=== PATIENT | female | born 1980 | race Caucasian/White ===

== ENCOUNTER 2023-10-08 06:07 | Outpatient (REF) | payer OTHER, SELFPAY ==
[2023-10-08 06:40] LABS: Basophils Absolute Auto 0.1 X10*3/uL (0.0-0.2); Basophils Percent Auto 0.3 % (0-2); Eosinophils Absolute Auto 0.2 X10*3/uL (0.0-0.4); Hematocrit 27.6 % (37.0-47.0); Hemoglobin 8.8 g/dl (12.0-16.0); Imm Gran Abs Auto 0.06 X10*3/uL (0.00-0.03); Imm Gran Pct Auto 0.3 % (0.0-0.4); Lymphocytes Absolute Auto 5.9 X10*3/uL (1.2-4.9); Lymphocytes Percent Auto 32.6 % (20-40); MANUAL DIFF FLAG SCAN; Mean Corpuscular HGB Conc 31.9 g/dl (31.0-35.0); Mean Corpuscular Hemoglobin 32.5 pg (27.0-33.0); Mean Corpuscular Volume 101.8 fL (80.0-98.0); Mean Platelet Volume 9.8 fL (9.4-12.3); Monocytes Absolute Auto 1.1 X10*3/uL (0.1-1.2); Monocytes Percent Auto 6.3 % (2-11); Neutrophils Absolute Auto 10.7 x10*3/uL (2.0-8.3); Neutrophils Percent Auto 59.5 % (45-73); Platelet Count 279 X10*3/uL (160-400); Red Blood Count 2.71 X10*6/uL (4.20-5.50); Red Cell Distribution Width 14.6 % (11.0-16.0); SCAN SMEAR FLAG 1
[2023-10-08 06:54] LABS: Alanine Aminotransferase 45 U/L (0-31); Albumin Level 3.8 g/dL (3.5-5.0); Alkaline Phosphatase 91 U/L (39-117); Anion Gap 14 (12-20); Aspartate Amino Transferase 28 U/L (5-31); Bilirubin Total 0.4 mg/dL (0.0-1.0); Blood Urea Nitrogen 18 mg/dL (9-16); Calcium 10.4 mg/dL (8.4-10.2); Carbon Dioxide 26 mmol/L (22-29); Chloride 101 mmol/L (96-108); Estimated Glomerular Filt Rate 36; Glucose Random 101 mg/dL (60-115); Potassium 3.9 mmol/L (3.3-5.1); Sodium 137 mmol/L (135-145); Total Protein 7.4 g/dL (6.5-8.0)
[2023-10-08 07:25] LABS: SLIDE REVIEW VERIFIED
== END 2023-10-08 06:08 | disposition home or self-care (01) ==
LOC: HO.MMNH1L 06:07
PROVIDERS: Visit Provider Family Medicine
DX: N18.6 End stage renal disease (principal)
CPT/HCPCS: 36415; 80053; 85025

== ENCOUNTER 2023-10-14 06:08 | Outpatient (REF) | payer OTHER, SELFPAY ==
[2023-10-14 06:57] LABS: Basophils Absolute Auto 0.1 X10*3/uL (0.0-0.2); Basophils Percent Auto 0.3 % (0-2); Eosinophils Absolute Auto 0.2 X10*3/uL (0.0-0.4); Hematocrit 27.9 % (37.0-47.0); Hemoglobin 8.7 g/dl (12.0-16.0); Imm Gran Abs Auto 0.07 X10*3/uL (0.00-0.03); Imm Gran Pct Auto 0.4 % (0.0-0.4); Lymphocytes Absolute Auto 7.2 X10*3/uL (1.2-4.9); Lymphocytes Percent Auto 41.5 % (20-40); MANUAL DIFF FLAG SCAN; Mean Corpuscular HGB Conc 31.2 g/dl (31.0-35.0); Mean Corpuscular Hemoglobin 32.5 pg (27.0-33.0); Mean Corpuscular Volume 104.1 fL (80.0-98.0); Mean Platelet Volume 9.7 fL (9.4-12.3); Monocytes Absolute Auto 1.3 X10*3/uL (0.1-1.2); Monocytes Percent Auto 7.3 % (2-11); Neutrophils Absolute Auto 8.6 x10*3/uL (2.0-8.3); Neutrophils Percent Auto 49.5 % (45-73); Platelet Count 357 X10*3/uL (160-400); Red Blood Count 2.68 X10*6/uL (4.20-5.50); SCAN SMEAR FLAG 1; White Blood Count 17.3 X10*3/uL (4.8-10.8)
[2023-10-14 07:11] LABS: Anion Gap 13 (12-20); Blood Urea Nitrogen 21 mg/dL (9-16); Calcium 9.7 mg/dL (8.4-10.2); Carbon Dioxide 25 mmol/L (22-29); Chloride 106 mmol/L (96-108); Estimated Glomerular Filt Rate 54; Glucose Random 79 mg/dL (60-115); Potassium 3.7 mmol/L (3.3-5.1); Sodium 140 mmol/L (135-145)
[2023-10-14 08:00] LABS: SLIDE REVIEW VERIFIED
== END 2023-10-14 06:09 | disposition home or self-care (01) ==
LOC: HO.MMNH1L 06:08
PROVIDERS: Visit Provider Family Medicine
DX: N18.6 End stage renal disease (principal)
CPT/HCPCS: 36415; 80048; 85025

== ENCOUNTER 2023-10-21 05:42 | Outpatient (REF) | payer OTHER, SELFPAY ==
[2023-10-21 05:47] LABS: Basophils Percent Auto 0.2 % (0-2); Eosinophils Percent Auto 0.1 % (0-4); Hematocrit 27.7 % (37.0-47.0); Hemoglobin 8.9 g/dl (12.0-16.0); Imm Gran Abs Auto 0.28 X10*3/uL (0.00-0.03); Imm Gran Pct Auto 1.2 % (0.0-0.4); Lymphocytes Absolute Auto 5.2 X10*3/uL (1.2-4.9); Lymphocytes Percent Auto 22.5 % (20-40); MANUAL DIFF FLAG SCAN; Mean Corpuscular HGB Conc 32.1 g/dl (31.0-35.0); Mean Corpuscular Hemoglobin 32.4 pg (27.0-33.0); Mean Corpuscular Volume 100.7 fL (80.0-98.0); Mean Platelet Volume 9.6 fL (9.4-12.3); Monocytes Percent Auto 4.1 % (2-11); Neutrophils Absolute Auto 16.6 x10*3/uL (2.0-8.3); Neutrophils Percent Auto 71.9 % (45-73); Platelet Count 327 X10*3/uL (160-400); Red Blood Count 2.75 X10*6/uL (4.20-5.50); Red Cell Distribution Width 13.4 % (11.0-16.0); SCAN SMEAR FLAG 1
[2023-10-21 06:15] LABS: SLIDE REVIEW VERIFIED
[2023-10-21 06:23] LABS: Anion Gap 13 (12-20); Blood Urea Nitrogen 22 mg/dL (9-16); Calcium 9.7 mg/dL (8.4-10.2); Carbon Dioxide 21 mmol/L (22-29); Chloride 106 mmol/L (96-108); Estimated Glomerular Filt Rate > 60; Glucose Random 107 mg/dL (60-115); Sodium 136 mmol/L (135-145)
== END 2023-10-21 05:43 | disposition home or self-care (01) ==
LOC: HO.MMNH1L 05:42
PROVIDERS: Visit Provider Family Medicine
DX: N18.6 End stage renal disease (principal)
CPT/HCPCS: 36415; 80048; 85025

== ENCOUNTER 2023-10-23 00:07 | Outpatient (REF) | payer OTHER, SELFPAY ==
[2023-10-23 00:39] LABS: Appearance Urine Clear; Color Urine Yellow; Glucose Urine UA Negative (Negative); Leukocyte Esterase Urine Negative (Negative); Nitrite Urine Negative (Negative); PH 6.5 (5.0-9.0); Specific Gravity - Urine <= 1.005 (1.005-1.025); Urine Blood Negative (Negative); Urine Ketones Negative (Negative); Urine Protein Negative (Neg-Trace)
== END 2023-10-23 00:08 | disposition home or self-care (01) ==
LOC: HO.MMNH1L 00:07
PROVIDERS: Visit Provider Family Medicine
DX: J80 Acute respiratory distress syndrome (principal); R26.9 Unspecified abnormalities of gait and mobility; R27.8 Other lack of coordination
CPT/HCPCS: 81003

== ENCOUNTER 2023-10-24 05:47 | Outpatient (REF) | payer OTHER, SELFPAY ==
[2023-10-24 06:01] LABS: Basophils Absolute Auto 0.1 X10*3/uL (0.0-0.2); Basophils Percent Auto 0.3 % (0-2); Eosinophils Absolute Auto 0.2 X10*3/uL (0.0-0.4); Eosinophils Percent Auto 0.7 % (0-4); Hematocrit 28.8 % (37.0-47.0); Hemoglobin 9.4 g/dl (12.0-16.0); Imm Gran Abs Auto 0.28 X10*3/uL (0.00-0.03); Imm Gran Pct Auto 1.2 % (0.0-0.4); Lymphocytes Absolute Auto 8.3 X10*3/uL (1.2-4.9); Lymphocytes Percent Auto 34.5 % (20-40); MANUAL DIFF FLAG SCAN; Mean Corpuscular HGB Conc 32.6 g/dl (31.0-35.0); Mean Corpuscular Hemoglobin 33.3 pg (27.0-33.0); Mean Corpuscular Volume 102.1 fL (80.0-98.0); Mean Platelet Volume 9.4 fL (9.4-12.3); Monocytes Absolute Auto 1.5 X10*3/uL (0.1-1.2); Monocytes Percent Auto 6.3 % (2-11); Neutrophils Absolute Auto 13.7 x10*3/uL (2.0-8.3); Platelet Count 280 X10*3/uL (160-400); Red Blood Count 2.82 X10*6/uL (4.20-5.50); Red Cell Distribution Width 13.5 % (11.0-16.0); SCAN SMEAR FLAG 1; White Blood Count 24.1 X10*3/uL (4.8-10.8)
[2023-10-24 06:21] LABS: Anion Gap 14 (12-20); Blood Urea Nitrogen 25 mg/dL (9-16); Calcium 10.1 mg/dL (8.4-10.2); Carbon Dioxide 24 mmol/L (22-29); Chloride 105 mmol/L (96-108); Estimated Glomerular Filt Rate 49; Glucose Random 76 mg/dL (60-115); Potassium 4.6 mmol/L (3.3-5.1); Sodium 138 mmol/L (135-145)
[2023-10-24 06:24] LABS: SLIDE REVIEW VERIFIED
== END 2023-10-24 05:48 | disposition home or self-care (01) ==
LOC: HO.MMNH1L 05:47
PROVIDERS: Visit Provider Family Medicine
DX: R27.8 Other lack of coordination (principal); J80 Acute respiratory distress syndrome; R26.9 Unspecified abnormalities of gait and mobility
CPT/HCPCS: 36415; 80048; 85025

== ENCOUNTER 2023-10-28 05:59 | Outpatient (REF) | payer OTHER, SELFPAY ==
[2023-10-28 06:15] LABS: Basophils Absolute Auto 0.1 X10*3/uL (0.0-0.2); Basophils Percent Auto 0.3 % (0-2); Eosinophils Absolute Auto 0.4 X10*3/uL (0.0-0.4); Hematocrit 29.7 % (37.0-47.0); Hemoglobin 9.6 g/dl (12.0-16.0); Imm Gran Abs Auto 0.28 X10*3/uL (0.00-0.03); Imm Gran Pct Auto 1.4 % (0.0-0.4); MANUAL DIFF FLAG SCAN; Mean Corpuscular HGB Conc 32.3 g/dl (31.0-35.0); Mean Corpuscular Hemoglobin 32.3 pg (27.0-33.0); Mean Platelet Volume 9.6 fL (9.4-12.3); Monocytes Absolute Auto 1.2 X10*3/uL (0.1-1.2); Neutrophils Absolute Auto 11.8 x10*3/uL (2.0-8.3); Neutrophils Percent Auto 57.3 % (45-73); Platelet Count 261 X10*3/uL (160-400); Red Blood Count 2.97 X10*6/uL (4.20-5.50); Red Cell Distribution Width 13.5 % (11.0-16.0); SCAN SMEAR FLAG 1; White Blood Count 20.6 X10*3/uL (4.8-10.8)
[2023-10-28 06:16] LABS: Lymphocytes Absolute Auto 6.8 X10*3/uL (1.2-4.9)
[2023-10-28 06:31] LABS: Alanine Aminotransferase 37 U/L (0-31); Albumin Level 3.4 g/dL (3.5-5.0); Alkaline Phosphatase 87 U/L (39-117); Anion Gap 11 (12-20); Aspartate Amino Transferase 19 U/L (5-31); Bilirubin Total 0.3 mg/dL (0.0-1.0); Blood Urea Nitrogen 18 mg/dL (9-16); Calcium 9.4 mg/dL (8.4-10.2); Carbon Dioxide 23 mmol/L (22-29); Chloride 108 mmol/L (96-108); Estimated Glomerular Filt Rate > 60; Glucose Random 107 mg/dL (60-115); Potassium 3.5 mmol/L (3.3-5.1); Sodium 138 mmol/L (135-145); Total Protein 6.2 g/dL (6.5-8.0)
[2023-10-28 07:29] LABS: SLIDE REVIEW VERIFIED
== END 2023-10-28 06:00 | disposition home or self-care (01) ==
LOC: HO.MMNH1L 05:59
PROVIDERS: Visit Provider Family Medicine
DX: N18.6 End stage renal disease (principal)
CPT/HCPCS: 36415; 80053; 85025

== ENCOUNTER 2025-05-14 13:32 | Outpatient (AMB) | payer OTHER, SELFPAY ==
--- NOTE | 2025-05-14 14:08 | A.OFFPC_ITS ---
Vital Signs 05/14/25 14:11 Height 4 ft 11 in Weight 184 lb 6 oz BMI 37.2 BP 120/82 Blood Pressure Location Lt brachial Position Sitting Respiration 16 Pulse 110 H Pulse Source Pulse Oximeter Temp 97.1 F Temp Source Temporal Artery Scan Pulse Oximetry (%) 99 Oxygen Delivery Method Nasal Cannula Oxygen Flow Rate 4 Intake Visit Reasons: Annual Director Of Assessing Required: No Accompanied by: Son Allergies ciprofloxacin Allergy (Intermediate, Verified 05/14/25 14:20) hives, internal burning epinephrine (From Epi E-Z Pen) Allergy (Intermediate, Verified 05/14/25 14:17) hives, internal burning ertapenem Allergy (Intermediate, Verified 05/14/25 14:20) hives, internal burning ibuprofen (From Motrin) Allergy (Intermediate, Verified 05/14/25 14:17) hives, internal burning iodine Allergy (Intermediate, Verified 05/14/25 14:20) hives, internal burning iohexol (From Omnipaque) Allergy (Intermediate, Verified 05/14/25 14:20) hives, internal burning methylprednisolone (From Medrol) Allergy (Intermediate, Verified 05/14/25 14:20) hives, internal burning naproxen Allergy (Intermediate, Verified 05/14/25 14:17) hives, internal burning Penicillins Allergy (Intermediate, Verified 05/14/25 14:20) hives, internal burning vancomycin Allergy (Intermediate, Verified 05/14/25 14:20) hives, internal burning Medication List - Last Reconciled 05/14/25 by Nita Carr MD blood sugar diagnostic (FreeStyle Lite Strips) As directed blood-glucose meter (FreeStyle Lite Meter kit) As directed cholecalciferol (vitamin D3) 125 mcg PO DAILY hydroxyzine pamoate 50 mg PO TID lebrikizumab-lbkz (Ebglyss Pen) mg subcut levetiracetam 1,000 mg PO BID loratadine 10 mg PO DAILY melatonin 10 mg PO BEDTIME PRN metoprolol tartrate mg PO midodrine 5 mg PO TID mirtazapine 45 mg PO BEDTIME montelukast 10 mg PO DAILY naloxone 4 mg/actuation intranasal ondansetron HCl 4 mg PO Q8H PRN pantoprazole 40 mg PO DAILY pregabalin 50 mg PO TID tacrolimus 0.1% 1 appl topical BID warfarin 2 - 4 mg PO DAILY Tobacco use date assessed: 05/14/25 Dental Screening Dental Screen Date: 05/14/25 Did you have a dental visit in the last 12 months?: Yes Did you have a dental problem in the last 6 months where you did not have access to dental care?: No Was dental information given to patient?: Patient has dentist HPI HPI Comments History of Present Illness Details The patient is a 45-year-old female presenting to re-establish care and for physical Seizure Disorder: History of managing with Keppra. Continuity with neurologic care planned. Diabetes Mellitus Type 2: Was on Zepbound for management. Elevated glucose readings. Reports med was discontinued by provider she was seeing in the interim. Hypertension: Discontinuation of metoprolol noted with resultant heart rate elevations and related symptoms such as chest tightness and palpitations. Interstitial Lung Disease: Requires 5L of oxygen, increased demand impacting mobility. Hvac Technician is at [facility] Dress Syndrome: s/p hospitalizations, established with [facility] Maintenance will obtain records for preventive care done at [facility] Medical History: - Seizure Disorder - Diabetes Mellitus Type 2 - Hypertension - Interstitial Lung Disease - Dress Syndrome Social History: - Requires assistance for daily activiti es due to mobility issues. - Lives with children; dependent on [id number] support for care. - Mobility limitations uses wheelchair Review of Systems - Cardiovascular: Reports palpitations a nd elevated heart rate after metoprolol was discontinued. - Respiratory: Interstitial lung disease requiring supplemental oxygen. - Dermatological: Previous issues relate d to Dress Syndrome. - Musculoskeletal: Reports mobility diff iculties and inability to ascend stairs. Physical Exam - Gen: NAD - HEENT: EOMI, PERRL - Chest: CTABL - Card: normal s1, s2, soft murmur acros s precordium - Abd: SNTND, +BS - Extremities: trace edema bilaterally Assessment and Plan 1. Seizure Disorder - Maintain Keppra therapy. - Follow up with [facility] neurologist mariaa baron in July. 2. Diabetes Mellitus Type 2 - Resume Zepbound potentially depending on labs - Monitor glucose stability and perform HbA1c. 3. Hypertension - Reinstitute metoprolol. - Monitor cardiovascular parameters. 4. Interstitial Lung Disease - Continue current oxygen therapy. - Follow up with pulmonology. 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 Depression/anxiety- continue to [facility], has a therapist Plan - Follow up with neurologist - Conduct HbA1c to monitor diabetes. - Reinstitute metoprolol for heart rate control and monitor. - Maintain oxygen at 5L for interstitial lung disease. - Contact instruments sales representative if symptoms pers ist. Discussion Notes I discussed with the patient the importance of maintaining her current seizure medication. We discussed the need for careful glucose monitoring, potential metabolic impacts, and close monitoring of her increased oxygen requirements for interstitial lung disease. Follow up in 1 month Patient Instructions - Resume metoprolol - Track blood pressure and heart rate; c all with updates on Saturday. - Use 5L oxygen as needed, have follow-u p with lung specialists. - Ensure medications that were stopped a re re-initiated as discussed. - Contact instruments sales representative if breathing wor sens or your oxygen needs increase. [facility] Medical History (Updated 05/14/25 @ 17:09 by Nita Carr MD) History of coma Chronic respiratory failure Interstitial lung disease DRESS syndrome Diabetes mellitus type 2 in obese Seizures Tachycardia Social History Housing: Apartment Patient Tobacco Use Status: Former Tobacco user Years Smoked: occasionally for 2 years e-Cigarette/Vaping Use: Never Used Current occupational status: unemployed Questionnaire PHQ-9 Over the last 2 weeks, how often have you been bothered by any of the following problems? 1. Little interest or pleasure in doing things: nearly every day 2. Feeling down, depressed, or hopeless: more than half the days 3. Trouble falling or staying asleep, or sleeping too much: nearly every day 4. Feeling tired or having little energy: nearly every day 5. Poor appetite or overeating: nearly every day 6. Feeling bad about yourself - or that you are a failure or have let yourself or your family down: not at all 7. Trouble concentrating on things, such as reading the newspaper or watching television: nearly every day 8. Moving or speaking so slowly that other people could have noticed. Or the opposite - being so fidgety or restless that you have been moving around a lot more than usual: more than half the days 9. Thoughts that you would be better off or of hurting yourself in some way: not at all Total score: 19 Depression Screening Interpretation: Positive Depression Screening Done: Yes 08876 - PHQ-9 Billing: Yes Source: Developed by Drs. William Ibarra, Anel Puentes, Vu Hall and colleagues, with an educational elisabeth from [employer]. Thrive Questionnaire Date Thrive assessed: 05/14/25 I am a: Patient What is your living situation today?: I have a steady place to live Within the past 12 months, did you worry whether your food would run out before you got money to buy more?: Sometimes True Do you have trouble paying for medicines?: Yes Do you have trouble getting transportation to medical appointments?: Yes Do you have trouble paying your heating and electricity bill?: Yes Do you have trouble taking care of your child, family member or friend?: Yes Are you currently unemployed and looking for a job?: No THRIVE Score: 3 AUDIT C Alcohol Use Questionnaire (AUDIT-C) 1. How often do you have a drink containing alcohol?: Never 3. How often do you have six or more drinks on one occasion?: Never Total Score: 0 FRED-7 AMB Questionnaire FRED-7 Date FRED - 7 assessed: 05/14/25 Feeling nervous, anxious, or on edge: 3 = Nearly every day Not being able to stop or control worryin = Nearly every day Worrying too much about different things: 3 = Nearly every day Trouble relaxin = Nearly every day Being so restless that it is hard to sit still: 3 = Nearly every day Becoming easily annoyed or irritable: 3 = Nearly every day Feeling afraid as if something awful might happen: 3 = Nearly every day Total FRED-7 score (0-4 normal; 5-9 mild; 10-14 moderate; 15-21 severe): 21 Source: Developed by Drs. William Ibarra, Anel Puentes, Vu Hall and colleagues, with an educational elisabeth from [employer]. Physical exam (Primary Care) Vital Signs: Last Vital Signs Temp 97.1 F 05/14/25 14:11 Pulse 110 H 05/14/25 14:11 Resp 16 05/14/25 14:11 BP 120/82 05/14/25 14:11 Pulse Ox 99 05/14/25 14:11 Oxygen Delivery Method Nasal Cannula 05/14/25 14:11 Oxygen Flow Rate 4 05/14/25 14:11 BMI result Body Mass Index 37.2 Tobacco/Smoking Status: Tobacco use Status Tobacco use date assessed 05/14/25 05/14/25 14:10 Patient Tobacco Use Status Former Tobacco user 05/14/25 14:29 e-Cigarette/Vaping Use Never Used 05/14/25 14:29 PHQ-9: PHQ-9 Score PHQ-9: Total score 19 05/14/25 16:22 Depression Screening Interpretation: Positive Thrive Assessment: Date of Thrive Assessment Date Thrive assessed 05/14/25 05/14/25 16:22 Coding Level of Care Code Est Pt Level 4 (49995) Est Pt Prev Care 40-64y(55334) Diagnoses Routine adult health maintenance Z00.00 Seizures R56.9 Tachycardia R00.0 Diabetes mellitus type 2 in obese E11.69; E66.9 DRESS syndrome D72.12; T50.905A Additional Codes PHQ-9 - 36801 - PHQ-9 Billing: Yes ([id number]) Comment add G2211 code and modifier 25 Assessment & Plan Assessment & Plan (1) Routine adult health maintenance: Code(s): Z00.00 - Encounter for general adult medical examination without abnormal findings Category: Medical (2) Seizures: Code(s): R56.9 - Unspecified convulsions Category: Medical (3) Tachycardia: Code(s): R00.0 - Tachycardia, unspecified Category: Medical Plan: resume metoprolol (4) Diabetes mellitus type 2 in obese: Code(s): E11.69 - Type 2 diabetes mellitus with other specified complication; E66.9 - Obesity, unspecified Category: Medical (5) DRESS syndrome: Code(s): D72.12 - Drug rash with eosinophilia and systemic symptoms syndrome; T50.905A - Adverse effect of unspecified drugs, medicaments and biological substances, initial encounter Category: Medical Plan - Follow up with neurologist - Conduct HbA1c to monitor diabetes. - Reinstitute metoprolol for heart rate control and monitor. - Maintain oxygen at 5L for interstitial lung disease. - Contact instruments sales representative if symptoms persist. Orders: Orders Hemoglobin A1c Today D72.12 - Drug rash with eosinophilia and systemic symptoms syndrome, E11.69 - Type 2 diabetes mellitus with other specified complication, E66.9 - Obesity, unspecified, R00.0 - Tachycardia, unspecified, R56.9 - Unspecified convulsions, T50.905A - Adverse effect of unspecified drugs, medicaments and biological substances, initial encounter Complete Blood Count Auto Diff Today D72.12 - Drug rash with eosinophilia and systemic symptoms syndrome, E11.69 - Type 2 diabetes mellitus with other specified complication, E66.9 - Obesity, unspecified, R00.0 - Tachycardia, unspecified, R56.9 - Unspecified convulsions, T50.905A - Adverse effect of unspecified drugs, medicaments and biological substances, initial encounter Comprehensive Met. Panel Today D72.12 - Drug rash with eosinophilia and systemic symptoms syndrome, E11.69 - Type 2 diabetes mellitus with other specified complication, E66.9 - Obesity, unspecified, R00.0 - Tachycardia, unspecified, R56.9 - Unspecified convulsions, T50.905A - Adverse effect of unspecified drugs, medicaments and biological substances, initial encounter Lipid Panel Today D72.12 - Drug rash with eosinophilia and systemic symptoms syndrome, . - Type 2 diabetes mellitus with other specified complication, E66.9 - Obesity, unspecified, R00.0 - Tachycardia, unspecified, R56.9 - Unspecified convulsions, T50.905A - Adverse effect of unspecified drugs, medicaments and biological substances, initial encounter Vitamin B12 Today D72.12 - Drug rash with eosinophilia and systemic symptoms syndrome, . - Type 2 diabetes mellitus with other specified complication, E66.9 - Obesity, unspecified, R00.0 - Tachycardia, unspecified, R56.9 - Unspecified convulsions, T50.905A - Adverse effect of unspecified drugs, medicaments and biological substances, initial encounter Vitamin D 25-OH Total Today D72.12 - Drug rash with eosinophilia and systemic symptoms syndrome, E11.69 - Type 2 diabetes mellitus with other specified complication, E66.9 - Obesity, unspecified, R00.0 - Tachycardia, unspecified, R56.9 - Unspecified convulsions, T50.905A - Adverse effect of unspecified drugs, medicaments and biological substances, initial encounter Microalbumin, Random (w Creat) Today .69 - Type 2 diabetes mellitus with other specified complication, E66.9 - Obesity, unspecified, R00.0 - Tachycardia, unspecified Medications: New melatonin 10 mg PO BEDTIME PRN 90 caps 2RF insomnia 90 days metoprolol tartrate 25 mg PO DAILY 90 tabs 2RF 90 days pantoprazole 40 mg PO DAILY 90 tabs 3RF 90 days thiamine HCl (vitamin B1) 100 mg PO DAILY 90 caps 2RF melatonin 10 mg PO BEDTIME 90 days PRN 90 caps 2RF insomnia pregabalin 50 mg PO TID 90 caps 5RF
[2025-05-14 14:11] VITALS: BP 120/82; PULSE 110; RESP 16; TEMP 36.2; O2SAT 99; BMI 37.2
--- OUTSIDE RECORDS SUMMARY | 2025-05-14 15:38 | XMS_ITS | Encounter Summary ---
Author Organization [facility] Address [address] [place] [id number] Phone Care Team Providers Care Benzol Operator Name Role Phone Nita Carr MD Primary Care Provider + Reason for Referral * Consultation (Within 1 month) - New Request Specialty Diagnoses / Procedures Referred By Bolivar murdock Referred To Contact Allergy and Immunology Olivia Meier MD [address] [place] [address] Phone: tel: fax: [address] [address] Phone: tel: Referral ID Status Reason Start Date Expiration Date V isits Requested Visits Authorized [id number] New Request 01/05/2025 01/05/2026 1 1 Encounter Details Date Type Department Care Team (Late st Contact Info) Description 01/05/2025 Transcribe Orders [facility] Referral Management [address] [place] [address] Olivia Meier MD [address] [place] [address] Social History Tobacco Use Types Packs/Day Years Used Date Smoking Tobacco: Never Assessed Education Answer Date Recorded Are you interested in more education? Not on shalonda e 04/01/2023 Are you concerned about learning? Not on file 04/01/2023 No 04/01/2023 No 04/01/2023 Digital Access Answer Date Recorded No 04/01/2023 No 04/01/2023 Reliable internet access at home? Not on file 04/01/2023 Device with a working camera? Not on file Comments Unknown Sex and Gender Information Value Date Recorded Sex Assigned at Female 04/01/2023 1:52 PM EDT Legal Sex Female 1:42 PM EDT Gender Identity Female 04/01/2023 1:52 PM EDT Sexual Orientation Straight 04/01/2023 1: 52 PM EDT documented as of this encounter Plan of Treatment Scheduled Referrals Name Type Priority Associated Diagnoses Order Schedule Amb[place] [facility] Referral Routine Ordered: 01/05/2025 documented as of this encounter Visit Diagnoses Not on filedocumented in this encounter Care Teams Benzol Operator Relationship Specialty Start Date End Date Nita Carr MD PCP - General Internal Medicine 04/01/23 documented as of this encounter Additional Source Comments The information contained in this document represents components of the legal health record. It is not the complete legal health record.[facility]
--- OUTSIDE RECORDS SUMMARY | 2025-05-14 15:38 | XMS_ITS | Data Portability ---
Author Organization [employer] [facility], [facility] Address [address] [place] [address] Care Team Providers Care Legislative Assistant Name Role Phone HIM CCA OTHER Assessment No assessment recorded. Plan of Treatment Reminders Order Date Submit Date Provider Last Modified By Organization Details Last Modified Time Details Appointments None record ed. Lab None record ed. Referral None record ed. Procedures None record ed. Surgeries None record ed. Imaging None record ed. Medication Orders None record ed. Patient TargetsNo targets recorded. Patient InstructionsNo instructions recorded. Reason for Referral None Reported. Medical Equipment None Reported. Medications Name Sig Start Date Stop Date Status Note LastModified by Organization Details LastModified Time vitamin d3 25 mcg (1000u) t active Not Available Not Available No t Available b-1 100 mg tabs active Not Available Not Available Not Available neomycin-zora ymyxin-hydro nakul 3.5 mg/mL-10,000 unit/mL-1 % ear solution active Not Available Not Available Not Available Diphenhist 25 mg capsule active Not Available Not Available Not Available azithromycin 250 mg tablet active Not Available Not Available Not Available levetiraceta m 500 mg tablet active Not Available Not Available Not Available valacyclovir 1 gram tablet active Not Available Not Available Not Available mycophenolat e mofetil 250 mg capsule active Not Available Not Available Not Available senna 8.6 mg tablet active Not Available Not Available Not Available ondansetron HCl 4 mg tablet active Not Available Not Available Not Available prednisone 20 mg tablet active Not Available Not Available Not Available dexamethason e 6 mg tablet active Not Available Not Available Not Available sertraline 100 mg tablet active Not Available Not Available Not Available midodrine 5 mg tablet active Not Available Not Available No t Available triamcinolon e acetonide 0.5 % topical ointment active Not Available Not Available Not Available metronidazol e 500 mg tablet active Not Available Not Available Not Available melatonin 3 mg tablet active Not Available Not Available No t Available omeprazole 40 mg capsule,klaus yed release active Not Available Not Available Not Available tramadol 50 mg tablet TAKE 1 TAB EVERY 6 TO 8 HOURS NEEDED FOR SEVERE PAIN SCALE 7-10 active Not Available Not Available N ot Available acetaminophe n ER 650 mg tablet,exten ded release active Not Available Not Available Not Available famotidine 20 mg tablet active Not Available Not Available Not Available hydrocortiso ne-acetic acid 1 %-2 % ear drops TAKE 3 DROPS INTO LEFT EAR 3 TIMES PER DAY FOR 7 DAYS active Not Available Not Available No t Available doxycycline monohydrate 100 mg capsule active Not Available Not Available Not Available mirtazapine 30 mg tablet active Not Available Not Available Not Available Banophen 25 mg tablet TAKE 1 TABLET BY MOUTH EVERY 4 HOURS NEEDED FOR ITCHING. active Not Available Not Available No t Available dexamethason e 4 mg tablet TAKE 1 TAB TWICE DAILY TODAY, THEN 1 TAB THREE TIMES A DAY 12/05 TO 12/07, THEN 1 TAB TWO TIMES A DAY 12/08 THRU 12/11, THEN 1 TAB DAILY 12/12 TO 12/15 active Not Available Not Available Not Available docusate sodium 100 mg capsule active Not Available Not Available N ot Available montelukast 10 mg tablet TAKE 1 TABLET BY MOUTH EVERY DAY AT BEDTIME active Not Available Not Available No t Available mupirocin 2 % topical ointment APPLY 1 APPLICATION TO BOTH NOSTRILS EVERY 12 HOURS active Not Available Not Available No t Available furosemide 20 mg tablet active Not Available Not Available Not Available mirtazapine 15 mg tablet active Not Available Not Available Not Available triamcinolon e acetonide 0.1 % lotion active Not Available Not Available Not Available Vitamin B-1 100 mg tablet TAKE 1 TABLET BY MOUTH EVERY DAY active Not Available Not Available No t Available hydroxyzine HCl 10 mg tablet active Not Available Not Available Not Available topiramate 100 mg tablet active Not Available Not Available Not Available loratadine 10 mg tablet active Not Available Not Available Not Available Ventolin HFA 90 mcg/actuatio n aerosol inhaler active Not Available Not Available Not Available hydroxyzine pamoate 25 mg capsule TAKE 1 CAPSULE BY MOUTH EVERY 8 HOURS NEEDED FOR ANXIETY active Not Available Not Available No t Available clonazepam 0.5 mg disintegrati ng tablet active Not Available Not Available No t Available metoprolol tartrate 25 mg tablet TAKE 1 TABLET BY MOUTH EVERY 12 HOURS active Not Available Not Available No t Available ramelteon 8 mg tablet active Not Available Not Available No t Available cholecalcife rol (vitamin D3) 25 mcg (1,000 unit) tablet active Not Available Not Available Not Available oxycodone 10 mg tablet TAKE 1 TABLET BY MOUTH EVERY 6 HOURS FOR 5 DAYS. active Not Available Not Available No t Available Eliquis 5 mg tablet TAKE 1 TABLET BY MOUTH TWO TIMES A DAY active Not Available Not Available Not Available Incruse Ellipta 62.5 mcg/actuatio n powder for inhalation active Not Available Not Available N ot Available Breo Ellipta 200 mcg-25 mcg/dose powder for inhalation active Not Available Not Available N ot Available Vitals Date Recorded Respiratory rate Oxygen saturation Oxygen saturation in Arterial blood by Pulse oximetry Body weight Heart rate Body temperature Systolic And Diastolic Provider Name and Address Organization Details Last Updated DateTime 4 16 /min 98 % 98 % 51806.8 4 g 78 /min 97.8 [degF] 92/60 mm[Hg] Not Available [facility] - production 4 14:30:03 Social History None recorded. Functional Status None recorded. Mental Status None recorded. Family History Nothing Reported. Medical History No medical history recorded. Gynecological HistoryNo gynecological history recorded. Obstetrics History GPAL:G 0 P 0 0 0 0 Past Encounters Encounter ID Performer Location Encounter Start Date Encounter Closed Date Diagnosis/Indication Diagnosis SNOMED-CT Code Diagnosis ICD10 Code Diagnosis IMO Codes Diagnosis Note [id number] Rohit Dove MD [facility] [address] [place] [phone] 01/30/2024 14:26:33 01/31/2024 08:37:19 Seasonal allergy 521857085 J30.2 Patient declines strep/COVI D test at this time. BP slighly low though patient with no symptoms. States that her care team requested visit as a wellness check. No CP or shortness of breath. Discussed red flag signs for which to seek higher level of care. Health Concerns Section Related Observation LastModified by Organization Detai ls LastModified Time None Recorded Concern Status LastModified by Organization Details LastModified Time None Recorded Advance Directives Directive None Recorded Payers Insurance Date Sequence Insurance Name Policy Number Policy Soler Covered Member ID Soler Member ID Guarantor Name 01/30/2024 1 [facility] - DOS ON OR AFTER 2022 - DUAL ELIGIBLE - CUSTODIAL OPTIONS AND ONE CARE (MEDICARE REPLACEMENT/AD VANTAGE - HMO) Amyisaac Garrisono [id number] Amy I Dobson Notes Date Note Type Note Provider Name and Address Organization Details Recorded Time 01/30/2024 text/html ROS as noted in the HPI HPI: Hx. of seizures, idiopathic progressive neuropathy, Tachycardia, s/p nephrectomy, Depression, Pulmonary Emboli, Acute of Chronic Respiratory failure, DRESS syndrome .................. .................. .................. .................. .................. .................. .................. ............... [facility] Nurse Triage Notes (Elayne Lr): Chief Complaints: Cardiac Concern (other), Pain, Shortness of Breath/Dyspnea, URI PMH: COPD/Asthma, Hypertension, Organ Transplant Other Allergies: Naproxen, Adhesive, Ertapenem, Heparin, Contrast dye Comments: HPI reviewed. No further information needed to process visit. .................. .................. .................. .................. .................. .................. .................. ............... [employer] Note From Charles Perez: Pt sts no complaints today and did not call in for service .pt sts she was contacted told she should be seen. Pt denies cp sob headache NVD, dizziness. Pt was resting in bed on arrival. Pt sts had a scratchy throat but sts it s due to her seasonal alergies and declined a strep test. Baseline vitals assessed. Throat examined unremarkable. Afebrile , lungs clear. [facility] [place] and advised pt she can call if she needs service in the future. Pt education on signs indicating the ER. .................. .................. .................. .................. .................. .................. .................. ............... Disposition: Fulfilled Rohit Dove MD [address] [place] [address],[address], [place], [id number], [employer] 01/30/2024 19:14:31 OBGyn Episode No OBEpisode recorded.
--- OUTSIDE RECORDS SUMMARY | 2025-05-14 15:38 | XMS_ITS ---
Author Name [facility] Organization Unknown History of Medication Use Medication Directions Dispensed Refills Start Date End Date Stat Kenalog 40 mg/mL suspension for injection Take 1 mL by injection route. 05/01/2023 active Euflexxa 10 mg/mL (mw 2.4-3.6 million) intra-articular syringe Inject 2 mL by intra-articular route for 21 days. 12/10/2022 3 completed benzonatate 100 mg capsule 3 active buspirone 10 mg tablet 3 active buspirone 5 mg tablet 3 active clindamycin HCl 150 mg capsule TAKE 3 CAPSULES BY MOUTH THREE TIMES DAILY FOR 7 DAYS 3 active codeine 10 mg-guaifenesin 100 mg/5 mL oral liquid 3 active fluticasone propionate 50 mcg/actuation nasal spray,suspension 3 active acetaminophen ER 650 mg tablet,extended release a ctive albuterol sulfate HFA 90 mcg/actuation aerosol inhaler active amoxicillin 500 mg capsule active amoxicillin 875 mg-potassium clavulanate 125 mg tablet active Breo Ellipta 200 mcg-25 mcg/dose powder for inhalation active cephalexin 500 mg capsule TAKE 1 CAPSULE BY MOUTH EVERY 6 HOURS active clonazepam 0.5 mg disintegrating tablet act christine doxycycline monohydrate 100 mg capsule active hydroxyzine pamoate 25 mg capsule TAKE 1 CAPSULE BY MOUTH EVERY 8 HOURS NEEDED FOR ANXIETY active Incruse Ellipta 62.5 mcg/actuation powder for inhalation active ipratropium 0.5 mg-albuterol 3 mg (2.5 mg base)/3 mL nebulization soln active levetiracetam 500 mg tablet TAKE 1 TABLET BY MOUTH TWO TIMES A DAY active Lidocaine Viscous 2 % mucosal solution RINSE AND GARGLE 5 ML BY MOUTH THREE TIMES DAILY BEFORE MEALS AND AT BEDTIME NEEDED FOR MOUTH SORE PAIN active meloxicam 15 mg tablet a ctive methylprednisolone 4 mg tablets in a dose pack ac tive metronidazole 500 mg tablet active midodrine 2.5 mg tablet active midodrine 5 mg tablet ac tive montelukast 10 mg tablet active nitrofurantoin monohydrate/macrocrysta ls 100 mg capsule active nystatin 100,000 unit/gram topical powder active omeprazole 40 mg capsule,delayed release a ctive ondansetron 4 mg disintegrating tablet act christine ondansetron HCl 4 mg tablet active oxycodone-acetaminophen 5 mg-325 mg tablet active prednisone 50 mg tablet active ramelteon 8 mg tablet ac tive sertraline 100 mg tablet active Spiriva Respimat 1.25 mcg/actuation solution for inhalation active Stool Softener-Stimulant Laxative 8.6 mg-50 mg tablet active topiramate 100 mg tablet TAKE 1 TABLET BY MOUTH AT BEDTIME active triamcinolone acetonide 0.1 % topical cream activ e valacyclovir 1 gram tablet active Ventolin HFA 90 mcg/actuation aerosol inhaler active Allergies Allergen Reaction Severity Comment Documented Date Source Statu s LIDOCAINE HIVES severe [facility] Problems Problem Status Onset Date Problem Type Date of Resoluti on Source 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 active 2022-11-02 ProblemAct [facility] Osteoarthritis of left knee joint active 2022-11-02 ProblemAct [facility] Arthritis of left knee active 2022-09-28 ProblemAct [facility] Osteoarthritis of right knee joint active 2023-05-01 ProblemAct [facility] Encounters Encounter Type Encounter Reason Primary Diagnosis Location Date Ambulatory [facility] 12/05/2022 Ambulatory [facility] 12/05/2022 [facility] 12/05/2022 [facility] 12/05/2022 [facility] 11/02/2022 [facility] 10/05/2022
--- OUTSIDE RECORDS SUMMARY | 2025-05-14 15:38 | XMS_ITS | Data Portability ---
Author Organization [place] [facility] Parag Reza [place] [place] Address [address] [place] [address] Care Team Providers Care Sap Data Analyst Name Role Phone STASTITI CHILDS Primary Care Provider Assessment Encounter Date Assessment Date Assessment LastModified by Organization Details LastModified Time 11/02/2022 11/02/2022 Is a 42-year-old female who comes in initially seen by Dr. Clemente for which he ordered an MRI of her left knee joint concern for meniscus tearing. However the patient states she has had [address] Cody Feng at [facility]. Her main complaint is that she keeps falling for unknown reasons with retropatellar knee pain. She cannot correlate the timing of the 2. She does reveal some findings on MRI suggestive of arthritis however her radiographs without Acuña view appear to be well-maintained joint space. I do recommend physical therapy as well as discussion regarding viscosupplementation injection. Which may help with her pain. She is not interested in cortisone injection at this time. Pain that she may be having may be due to fat pad impingement syndrome versus the degenerative changes. Regarding her Falling she needs to follow-up with her primary care for further work-up which may be unrelated. The patient is interested in viscosupplementation we will put this through her insurance carrier and schedule an appointment accordingly. The patient agrees with the above-noted plan. Indirect care and treatment in conjunction with Dr. Arnold Additional treatment plan discussed with the patient in detail included the following; - Provider focused nonsteroidal anti-inflammatory regimen (discussed were the pros, cons, benefits and risks as well as any black box warnings) in patients over 60 years old they should be very cautious in taking these medications due to potential decreased kidney function and or elevated blood pressure. - Analgesic pain medication for pain suppression (discussed were the pros, cons, benefits and risks as well as any black box warnings) - The use of topical pain relieving medication were discussed - The use of ice to decrease inflammation and pain - The use of assistive ambulatory devices for ambulation and fall prevention - Formal specific guided physical therapy program I reviewed my findings at length with the patient today. We discussed the nature and etiology of this problem along with current treatment options. We discussed the expected course and outcomes and what to expect. We also discussed risks and benefits. All of their questions were answered today, and there was exhibited understanding and comprehension of all that was discussed. 10 minutes were spent reviewing previous imaging and charting. 10 minutes were spent obtaining patient history. 5 minutes were spent on physical exam. 5minutes were spent explaining diagnosis and assessment. Today's documentation was made using voice recognition software. This note may contain grammatical errors secondary to the software. Not available 11/04/2022 17:40:58 12/10/2022 12/10/2022 Pleasant 42-year -old female degenerative arthritis of the left knee with symptomatic arthralgia here for #1 of 3 Euflexxa injections in the left knee. After verbal consent was granted by the patient. Procedure was carried out. Patient tolerated the procedure well. He had to wait 15 minutes after the injection without any side effect or untoward reaction. Discharge stable condition. We will see her back next week for reevaluation and possible reinjection. Should she have any questions or concerns she should contact my office. She agrees with the above-noted plan. Indirect care and treatment in conjunction with Dr. Arnold Additional treatment plan discussed with the patient in detail included the following; - Provider focused nonsteroidal anti-inflammatory regimen (discussed were the pros, cons, benefits and risks as well as any black box warnings) in patients over 60 years old they should be very cautious in taking these medications due to potential decreased kidney function and or elevated blood pressure. - Analgesic pain medication for pain suppression (discussed were the pros, cons, benefits and risks as well as any black box warnings) - The use of topical pain relieving medication were discussed - The use of ice to decrease inflammation and pain - The use of assistive ambulatory devices for ambulation and fall prevention - Formal specific guided physical therapy program I reviewed my findings at length with the patient today. We discussed the nature and etiology of this problem along with current treatment options. We discussed the expected course and outcomes and what to expect. We also discussed risks and benefits. All of their questions were answered today, and there was exhibited understanding and comprehension of all that was discussed. Time Spent: 10 minutes were spent reviewing previous imaging and charting. 10 minutes were spent obtaining patient history. 5 minutes were spent on physical exam. 5minutes were spent explaining diagnosis and assessment. Today's documentation was made using voice recognition software. This note may contain grammatical errors secondary to the software. Documenting Provider: Oliver Arnold MD Not available 12/10/2022 14:00:22 12/17/2022 12/17/2022 Pleasant 42-year -old female degenerative arthritis of the left knee with symptomatic arthralgia here for #2 of 3 Euflexxa injections in the left knee. After verbal consent was granted by the patient. Procedure was carried out. Regarding her instability is likely positional versus neurological. She also has back problems. I will place her double hinged knee brace for stability standpoint. She does utilize a cane. Patient tolerated the procedure well. He had to wait 15 minutes after the injection without any side effect or untoward reaction. Discharge stable condition. We will see her back next week for reevaluation and possible reinjection. Should she have any questions or concerns she should contact my office. She agrees with the above-noted plan. Indirect care and treatment in conjunction with Dr. Arnold Additional treatment plan discussed with the patient in detail included the following; - Provider focused nonsteroidal anti-inflammatory regimen (discussed were the pros, cons, benefits and risks as well as any black box warnings) in patients over 60 years old they should be very cautious in taking these medications due to potential decreased kidney function and or elevated blood pressure. - Analgesic pain medication for pain suppression (discussed were the pros, cons, benefits and risks as well as any black box warnings) - The use of topical pain relieving medication were discussed - The use of ice to decrease inflammation and pain - The use of assistive ambulatory devices for ambulation and fall prevention - Formal specific guided physical therapy program I reviewed my findings at length with the patient today. We discussed the nature and etiology of this problem along with current treatment options. We discussed the expected course and outcomes and what to expect. We also discussed risks and benefits. All of their questions were answered today, and there was exhibited understanding and comprehension of all that was discussed. Time Spent: 10 minutes were spent reviewing previous imaging and charting. 10 minutes were spent obtaining patient history. 5 minutes were spent on physical exam. 5minutes were spent explaining diagnosis and assessment. Today's documentation was made using voice recognition software. This note may contain grammatical errors secondary to the software. Documenting Provider: Oliver Arnold MD Not available 12/17/2022 13:53:11 12/26/2022 12/26/2022 Documenting Prov ider: Oliver Arnold MD Pleasant 42-year-old female degenerative arthritis of the left knee with symptomatic arthralgia here for #3 of 3 Euflexxa injections in the left knee. After verbal consent was granted by the patient. Procedure was carried out. Regarding her instability is likely positional versus neurological. She also has back problems. I will place her double hinged knee brace for stability standpoint. She does utilize a cane. Patient tolerated the procedure well. He had to wait 15 minutes after the injection without any side effect or untoward reaction. Discharge stable condition. We will see her back in 3 to 6 months time for reevaluation. Indirect care and treatment in conjunction with Dr. Arnold Additional treatment plan discussed with the patient in detail included the following; - Provider focused nonsteroidal anti-inflammatory regimen (discussed were the pros, cons, benefits and risks as well as any black box warnings) in patients over 60 years old they should be very cautious in taking these medications due to potential decreased kidney function and or elevated blood pressure. - Analgesic pain medication for pain suppression (discussed were the pros, cons, benefits and risks as well as any black box warnings) - The use of topical pain relieving medication were discussed - The use of ice to decrease inflammation and pain - The use of assistive ambulatory devices for ambulation and fall prevention - Formal specific guided physical therapy program I reviewed my findings at length with the patient today. We discussed the nature and etiology of this problem along with current treatment options. We discussed the expected course and outcomes and what to expect. We also discussed risks and benefits. All of their questions were answered today, and there was exhibited understanding and comprehension of all that was discussed. Time Spent: 10 minutes were spent reviewing previous imaging and charting. 10 minutes were spent obtaining patient history. 5 minutes were spent on physical exam. 5minutes were spent explaining diagnosis and assessment. Today's documentation was made using voice recognition software. This note may contain grammatical errors secondary to the software. Documenting Provider: Oliver Arnold MD Not available 12/26/2022 15:01:09 05/01/2023 05/01/2023 43-year-old fema le degenerative arthritis of both knees here for bilateral knee cortisone injections after verbal consent was obtained. The procedures were carried out individually bilaterally for which she tolerated well. Aftercare instructions were discussed in detail. I will see her back in 3 months time for repeat clinical exam. We did discuss formal physical therapy which she is amenable to. Patient was seen and evaluated by Armond You PA-C in indirect conjuction with Documenting Provider: Oliver Arnold MD . He/She agrees with history, physical examination, tests/diagnostic imaging, and treatment plan. Additional treatment plan discussed with the patient (only initiated if in boldface font) otherwise not applicable. Treatment may include the following; - Provider focused nonsteroidal anti-inflammatory regimen (discussed were the pros, cons, benefits and risks as well as any black box warnings) in patients over 60 years old they should be very cautious in taking these medications due to potential decreased kidney function and or elevated blood pressure. - Analgesic pain medication for pain suppression (discussed were the pros, cons, benefits and risks as well as any black box warnings) - The use of topical pain relieving medication were discussed - The use of ice to decrease inflammation and pain - The use of assistive ambulatory devices for ambulation and fall prevention - Formal specific guided physical therapy program I reviewed my findings at length with the patient today. We discussed the nature and etiology of this problem along with current treatment options. We discussed the expected course and outcomes and what to expect. We also discussed risks and benefits. All of their questions were answered today, and there was exhibited understanding and comprehension of all that was discussed. Time Spent: 10 minutes were spent reviewing previous imaging and charting. 10 minutes were spent obtaining patient history. 5 minutes were spent on physical exam. 5minutes were spent explaining diagnosis and assessment. Today's documentation was made using voice recognition software. This note may contain grammatical errors secondary to the software. Not available 05/01/2023 10:38:32 Plan of Treatment Reminders Order Date Submit Date Provider Last Modified By Organization Details Last Modified Time Details Appointments None recorded. Lab None recorded. Referral physical therapist referral - chronic bilater knee pain OA, work on ROM and strength, gait etc 2022 023 [email or web address] Not available 08:58:26 Procedures intra-artic ular injection, knee, viscosupple ment (PROC) - Please check insurance for [employer] on, insurance preferred med. Knee Laterality: 2022 023 [email or web address] Not available 11:57:47 Surgeries None recorded. Imaging None recorded. Medication Orders Kenalog 40 mg/mL suspension for injection 2022 023 [email or web address] [facility], [address], [place], [address], 10:40:58 Kenalog 40 mg/mL suspension for injection 2022 023 [email or web address] [facility], [address], [place], [address], 10:40:58 Euflexxa 10 mg/mL (mw 2.4-3.6 million) intra-artic ular syringe 2022 023 [email or web address] [facility], [address], [place], [address], 10:34:38 Euflexxa 10 mg/mL (mw 2.4-3.6 million) intra-artic ular syringe 2022 023 [email or web address] [facility], [address], [place], [address], 10:34:38 Euflexxa 10 mg/mL (mw 2.4-3.6 million) intra-artic ular syringe 2022 023 [email or web address] [facility], [address], [place], [address], 10:34:38 Patient TargetsNo targets recorded. Patient Instructions Encounter Date Encounter Id Patient Instructions Last Modified By Organization Details Last Modified Time 12/10/2022 [id number] You have been pr ovided with a viscosupplementation injection in order to reduce the pain that you are experiencing from your arthritis. The injection consists of a lubricating injection called hyaluronic acid. Please note that not everyone will have a lasting response following the injection. PATIENT INSTRUCTIONS I recommend icing the affected area for 20 minutes 3-4 times per day. It is recommended that you refrain from any high level activities using the joint or limb that was injected for approximately 24-48 hours. Normal day-to-day activities are generally not a problem. POSSIBLE SIDE EFFECTS Individuals with dark complexions may experience some skin discoloration locally at the site of the injection. There is the possibility of an increase in discomfort within 48 hours following the injection. This is called a f lare . To help minimize the chances of this, please see the post-injection instructions above. There is a less than 1% chance of an infection. If you notice any signs of infection (redness, warmth, drainage, fever greater than 100 degrees) please call our office or contact us through the portal [facility]. [email or web address] Not available 12/10/2022 13:29:02 12/17/2022 [id number] You have been pr ovided with a viscosupplementation injection in order to reduce the pain that you are experiencing from your arthritis. The injection consists of a lubricating injection called hyaluronic acid. Please note that not everyone will have a lasting response following the injection. PATIENT INSTRUCTIONS I recommend icing the affected area for 20 minutes 3-4 times per day. It is recommended that you refrain from any high level activities using the joint or limb that was injected for approximately 24-48 hours. Normal day-to-day activities are generally not a problem. POSSIBLE SIDE EFFECTS Individuals with dark complexions may experience some skin discoloration locally at the site of the injection. There is the possibility of an increase in discomfort within 48 hours following the injection. This is called a f lare . To help minimize the chances of this, please see the post-injection instructions above. There is a less than 1% chance of an infection. If you notice any signs of infection (redness, warmth, drainage, fever greater than 100 degrees) please call our office or contact us through the portal [facility]. Not available 12/17/2022 11:08:55 12/26/2022 [id number] You have been pr ovided with a viscosupplementation injection in order to reduce the pain that you are experiencing from your arthritis. The injection consists of a lubricating injection called hyaluronic acid. Please note that not everyone will have a lasting response following the injection. PATIENT INSTRUCTIONS I recommend icing the affected area for 20 minutes 3-4 times per day. It is recommended that you refrain from any high level activities using the joint or limb that was injected for approximately 24-48 hours. Normal day-to-day activities are generally not a problem. POSSIBLE SIDE EFFECTS Individuals with dark complexions may experience some skin discoloration locally at the site of the injection. There is the possibility of an increase in discomfort within 48 hours following the injection. This is called daysi sanchez . To help minimize the chances of this, please see the post-injection instructions above. There is a less than 1% chance of an infection. If you notice any signs of infection (redness, warmth, drainage, fever greater than 100 degrees) please call our office or contact us through the portal [facility]. [email or web address] Not available 12/26/2022 14:18:14 05/01/2023 [id number] You have been provided with a cortisone injection in order to reduce the pain and inflammation that you are experiencing. The injection consists of two medications. Cortisone (an anti-inflammatory that will take 48-72 hours to take effect) and Lidocaine (a numbing agent that will last 2-3 hours). Please note that not everyone will have a lasting response following the injection. PATIENT INSTRUCTIONS Once the Lidocaine wears off, you may have an increase in your pain. I recommend icing the affected area for 20 minutes 3-4 times per day. It is recommended that you refrain from any high level activities using the joint or limb that was injected for approximately 24-48 hours. Normal day-to-day activities are generally not a problem. POSSIBLE SIDE EFFECTS Individuals with dark complexions may experience some skin discoloration locally at the site of the injection. There is the possibility of an increase in discomfort within 48 hours following the injection. This is called daysi sanchez . To help minimize the chances of this, please see the post-injection instructions above. There is a less than 1% chance of an infection. If you notice any signs of infection (redness, warmth, drainage, fever greater than 100 degrees) please call our office or contact us through the portal [facility]. Not available 05/01/2023 10:38:13 Reason for Referral Physical Therapist Referral for Osteoarthritis of right knee joint chronic bilater knee pain OA, work on ROM and strength, gait etc Referring Physician: Armond You, Orthopedic Surgery, Encounter Date: 05/01/2023 Results Created Date Observation Date Name Description Value Unit Range Abnormal Flag Note LastModifiedBy Organization Detail LastModifiedTime 10/27/19 23 imagi ng/latha maldonado tic resul t No observ ation record ed. [email or web address] Not Available 10/26 15:47:34 Result Notes None recorded. 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 Procedures Surgical History Date Name Laterality Status Provider Name and Address Organization Details Recorded Time 3 Knee Joint/Bursa Asp & Inj completed ARMOND YOU PA-C [address], [place], [address], [place] [facility] [place], P 05/01/2023 10:27:37 3 Euflexxa Knee Inj completed ARMOND YOU PA-C [address], [place], [address], [place] [facility], [facility] 12/26/2022 14:57:23 3 Euflexxa Knee Inj completed ARMOND YOU PA-C [address] [facility], [place], [address], [place] [facility] [place], [facility] 12/17/2022 11:09:08 3 Euflexxa Knee Inj completed ARMOND YOU PA-C [address], [place], [address], [place] [facility] [place], [facility] 12/10/2022 13:59:24 Knee arthroscopy/s urgery completed Mony Luna [facility] [place], [facility] 09/28/2022 10:14:17 Imaging Results None recorded. Procedure Notes None recorded. Medical Equipment None Reported. Allergies Allergen ID Allergen Name Allergen Category Reaction Reaction Severity Criticality Documentation Date Start Date Code Code System Note Provider Name and Address Organization Details Recorded Time 3229 lidocaine medicatio n hives severe high 11/04/2022 6387 RxNorm ARMOND YOU PA-C [address], [place], [address], [place] [facility] [place], [facility] 17:35:35 Medications Name Sig Start Date Stop Date Status Note LastModified by Organization Details LastModified Time amoxicillin 500 mg capsule active Not Available Not Available Not Available buspirone 5 mg tablet 05/01 completed Not Available Not Available Not Available ipratropium 0.5 mg-albutero l 3 mg (2.5 mg base)/3 mL nebulizatio n soln active Not Available Not Available Not Available Lidocaine Viscous 2 % mucosal solution RINSE AND GARGLE 5 ML BY MOUTH THREE TIMES DAILY BEFORE MEALS AND AT BEDTIME NEEDED FOR MOUTH SORE PAIN 05/01 completed Not Available Not Available Not Available levetiracet am 500 mg tablet TAKE 1 TABLET BY MOUTH TWO TIMES A DAY active Not Available Not Available No t Available valacyclovi r 1 gram tablet active Not Available Not Available Not Available meloxicam 15 mg tablet 05/01 completed Not Available Not Available Not Available ondansetron HCl 4 mg tablet 05/01 completed Not Available Not Available Not Available sertraline 100 mg tablet active Not Available Not Available Not Available midodrine 5 mg tablet active Not Available Not Available No t Available clindamycin HCl 150 mg capsule TAKE 3 CAPSULES BY MOUTH THREE TIMES DAILY FOR 7 DAYS 05/01 completed Not Available Not Available Not Available metronidazo le 500 mg tablet active Not Available Not Available Not Available omeprazole 40 mg capsule,del ayed release active Not Available Not Available Not Available triamcinolo ne acetonide 0.1 % topical cream 05/01 completed Not Available Not Available Not Available acetaminoph en ER 650 mg tablet,exte nded release active Not Available Not Available Not Available Kenalog 40 mg/mL suspension for injection Take 1 mL by injection route. 05/01 completed Not Available Not Available Not Available oxycodone-a cetaminophe n 5 mg-325 mg tablet active Not Available Not Available No t Available benzonatate 100 mg capsule 05/01 completed Not Available Not Available Not Available doxycycline monohydrate 100 mg capsule active Not Available Not Available Not Available cephalexin 500 mg capsule TAKE 1 CAPSULE BY MOUTH EVERY 6 HOURS active Not Available Not Available No t Available buspirone 10 mg tablet 05/01 completed Not Available Not Available Not Available prednisone 50 mg tablet 05/01 completed Not Available Not Available Not Available montelukast 10 mg tablet active Not Available Not Available Not Available codeine 10 mg-guaifene sin 100 mg/5 mL oral liquid 05/01 completed Not Available Not Available Not Available midodrine 2.5 mg tablet active Not Available Not Available Not Available nystatin 100,000 unit/gram topical powder 05/01 completed Not Available Not Available Not Available methylpredn isolone 4 mg tablets in a dose pack 05/01 completed Not Available Not Available Not Available ondansetron 4 mg disintegrat ing tablet TAKE 1 TABLET BY MOUTH EVERY 8 HOURS NEEDED FOR NAUSEA AND VOMITING active Not Available Not Available No t Available topiramate 100 mg tablet TAKE 1 TABLET BY MOUTH AT BEDTIME active Not Available Not Available No t Available fluticasone propionate 50 mcg/actuati on nasal spray,suspe nsion 05/01 completed Not Available Not Available Not Available amoxicillin 875 mg-potassiu m clavulanate 125 mg tablet active Not Available Not Available Not Available Ventolin HFA 90 mcg/actuati on aerosol inhaler active Not Available Not Available Not Available hydroxyzine pamoate 25 mg capsule TAKE 1 CAPSULE BY MOUTH EVERY 8 HOURS NEEDED FOR ANXIETY active Not Available Not Available No t Available clonazepam 0.5 mg disintegrat ing tablet active Not Available Not Available N ot Available nitrofurant oin monohydrate /macrocryst als 100 mg capsule active Not Available Not Available Not Available ramelteon 8 mg tablet active Not Available Not Available No t Available Euflexxa 10 mg/mL (mw 2.4-3.6 million) intra-artic ular syringe Inject 2 mL by intra-art icular route for 21 days. 05/01 completed Not Available Not Available Not Available Stool Softener-St imulant Laxative 8.6 mg-50 mg tablet 05/01 completed Not Available Not Available Not Available Incruse Ellipta 62.5 mcg/actuati on powder for inhalation active Not Available Not Available N ot Available Breo Ellipta 200 mcg-25 mcg/dose powder for inhalation active Not Available Not Available N ot Available Spiriva Respimat 1.25 mcg/actuati on solution for inhalation 05/01 completed Not Available Not Available Not Available Vitals Date Recorded Body height Body mass index (BMI) Body weight Provider Name and Address Organization Details Last Updated DateTime 11/02/2022 149.86 cm 32.3 kg/m2 [address]7982.[address] [facility] 11/02/2022 14:30:09 Date Recorded Body height Provider Name an d Address Organization Details Last Updated DateTime 12/10/2022 149.[address] [facility] 12/10/2022 13:32:53 Date Recorded Body height Provider Name an d Address Organization Details Last Updated DateTime 12/17/2022 149.[address] - [facility] 12/17/2022 13:14:53 Social History None recorded. Functional Status None recorded. Mental Status None recorded. Family History Relationship Description Onset Age of this Age Resolved Age Notes LastModified by Organization Details LastModified Time Father No current problems or disability [email or web address] Not available 09/28 10:13:59 Mother No current problems or disability [email or web address] Not available 09/28 10:13:59 Medical History Condition Response Anemia Y Asthma Y Gynecological HistoryNo gynecological history recorded. Obstetrics History GPAL:G 0 P 0 0 0 0 Past Encounters Encounter ID Performer Location Encounter Start Date Encounter Closed Date Diagnosis/Indication Diagnosis SNOMED-CT Code Diagnosis ICD10 Code Diagnosis IMO Codes Diagnosis Note [id number] MD CHERYL Villanueva [address] [address] 09/28/2022 09:01:59 09/28/2022 11:58:23 Pain of right knee joint 5917564161 61535 M25.561 Pain of le ft knee joint 9104359289 27961 M25.562 Arthritis of left knee joint 8972313209 001512 M13.862 [id number] ARTURO ESCUDERO [address] [address] 11/02/2022 14:03:53 11/02/2022 14:56:24 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 7479873383 380466 M79.4 Osteoarthr itis of left knee joint 4926696331 65346 M17.12 [id number] ARTURO ESCUDERO [address] [place] [address] 12/10/2022 13:20:48 12/10/2022 16:09:29 Osteoarthritis of left knee joint 8621996467 55069 M17.12 [id number] ARTURO ESCUDERO [address] [place] [address] 12/17/2022 12:36:26 12/17/2022 13:53:15 Osteoarthritis of left knee joint 4545953612 04534 M17.12 [id number] ARTURO ESCUDERO [facility] [address] [facility] [place] [address] 12/26/2022 14:15:24 12/26/2022 15:28:05 Osteoarthritis of left knee joint 8214779638 50004 M17.12 [id number] ARTURO ESCUDERO [facility] [address] [facility] [place] [address] 05/01/2023 09:58:49 05/01/2023 10:39:17 Osteoarthritis of left knee joint 7631869512 13900 M17.12 Osteoarthr itis of right knee joint 5766626657 58966 M17.11 Health Concerns Section Related Observation LastModified by Organization Detai ls LastModified Time None Recorded Concern Status LastModified by Organization Details LastModified Time None Recorded Advance Directives Directive None Recorded Payers Insurance Date Sequence Insurance Name Policy Number Policy Soler Covered Member ID Soler Member ID Guarantor Name 12/05/2022 1 [facility] - DOS PRIOR TO 2022 (MEDICARE REPLACEMENT/AD VANTAGE - PPO) Amy Cruz [id number] Amy Cruz 07/29/2023 1 [facility] - DOS ON OR AFTER 2022 - MEDICARE [place]VANTAGE [place]ARE REPLACEMENT/AD VANTAGE - PPO) Amy Cruz [id number] Amy Cruz Notes Date Note Type Note Provider Name and Address Organization Details Recorded Time 3 text/html Assessment / Plan Dr. Clemente date of visit 09/28/2022.Ms. Baca presents with bilateral knee pains and mechanical symptoms, left greater than right, due to early degenerative joint disease as well as possible medial meniscus tearing and possible patella subluxation. Thus, I will send the patient for an MRI of her left knee for further evaluation. I will contact her by phone once the MRI results are available. She will continue with activity modifications in the meantime.Encounter reviewed & signed by Nima Clemente MD on 09/28/2022 at 1:04pm HPI:This is a 42-year-old female who was initially seen by Dr. Clemente on 09/28/2022 with bilateral knee pain left worse than right. Pertinent to her orthopedic history she states [address] Cody Feng at [facility] including lateral release and meniscus surgery however we do not have chart present. She states she is in chronic pain she states that she has some intermittent swelling, locking and she keeps falling for an unknown reason. She denies any dizziness however she states balance issues . She states she uses a cane for ambulation. She states that she has had a severe reaction with lidocaine with a prior injection by another provider . Which included severe hives. He states no interval change in her discomfort which is predominantly medial in nature with certain flexion. She was sent for an MRI of the left knee for which she is here regarding her results. I reviewed these personally as well as her radiographs that were conducted on 09/28/2022. X-rays both knees reveal minimal degenerative change. [facility] [address] [place] [address] ___Patient: AMY CRUZ Deanna /Age/Sex: 1980 - 42 - FUnit#: [id number] [facility]/REG CLIAccount#: [id number] Mnemonic/Ordering Site: [facility]/SPMAINOrdering Physician: NIMA CLEMENTE MD MR Knee LT WO - 10/18/22 -MRI of the left knee. October 18, 2022 at 1817 hoursClinical History: Left knee pain, rule out tear.Technique: Multiplanar multiecho sequences through the left knee wereobtained without intravenous contrast.Findings:The evaluation is limited due to motion artifact.Joint: Small joint effusion. No Short's cyst.Cruciate ligaments: Anterior and posterior cruciate ligaments are intact.Menisci: There is focal blunting of mid body of lateral meniscus (18/28,coronal T2 W fat suppressed), a small partial thickness radial tear cannotbe entirely excluded. The medial meniscus is intact.The root attachments ofboth the menisci are intact.Collateral ligaments: Medial and lateral collateral ligaments are intact.Lateral, posteromedial and posterolateral corner structures: Iliotibialband, biceps femoris, conjoined and popliteus tendons are unremarkable. Theposteromedial and posterolateral corner structures are unremarkable.Patella and extensor mechanism: Patella is normal in position. Quadricepsas well as patellar tendons are intact. Medial patellofemoral ligament aswell as medial, lateral patellar retinacula are intact. There is soft tissuehyperintensity in the superolateral aspect of the Hoffa's fat pad (/,sagittal T2 W fat suppressed).Bones: Bones show normal marrow signal. A small bony island is seen in theanterior lateral femoral condyle. No fracture or osteonecrosis.Articular cartilage: There is mild diffuse thinning of the articularcartilage along the medial, lateral tibiofemoral compartments. There is alsomild to moderate diffuse thinning of articular cartilage in thepatellofemoral compartment, predominantly involving the medial facet.Superior tibiofibular joint: Unremarkable.Neurovascula r bundle: Unremarkable.Impression:1 . Focal blunting of mid body of lateral meniscus, a small partialthickness radial tear cannot be entirely excluded.Small joint effusion.Correlate with location of pain3. Early changes of tricompartmental chondromalacia as described above.5. Soft tissue hyperintensity in superolateral aspect of Hoffa's fat pad.Recommend clinical correlation for Hoffa's fat pad impingement syndrome.Dictating Physician: MONALISA FLORES MDElectronically Signed by: MONALISA FLORES [facility]ENTER[facility] Date/Time: 10/21/22 1444Sign date/Time: 10/21/22 [id number] ARMOND YOU PA-C [address], [place], [address], [place] - [facility] 11/04/2022 17:41:28 3 text/html Assessment & Plan: Date of visit 11/02/2022 Is a 42-year-old female who comes in initially seen by Dr. Clemente for which he ordered an MRI of her left knee joint concern for meniscus tearing. However the patient states she has had [address] Cody Feng at [facility]. Her main complaint is that she keeps falling for unknown reasons with retropatellar knee pain. She cannot correlate the timing of the 2. She does reveal some findings on MRI suggestive of arthritis however her radiographs without Acuña view appear to be well-maintained joint space. I do recommend physical therapy as well as discussion regarding viscosupplementation injection. Which may help with her pain. She is not interested in cortisone injection at this time. Pain that she may be having may be due to fat pad impingement syndrome versus the degenerative changes. Regarding her Falling she needs to follow-up with her primary care for further work-up which may be unrelated.The patient is interested in viscosupplementation we will put this through her insurance carrier and schedule an appointment accordingly. The patient agrees with the above-noted plan. HPI:Ongoing left knee discomfort patient is here for viscosupplementation injection of the left knee joint. Patient denies any allergies to egg. Pain is medial nature that gets worse with walking. Patient states since her last visit she had a seizure 3 weeks ago she is now on Keppra being worked up by neurology. ARMOND YOU PA-C [address] [facility] [address], [place], [address], [place] - [facility] 12/10/2022 14:01:46 3 text/html HPI:Ongoing left knee discomfort patient is here for viscosupplementation injection of the left knee joint. Patient denies any allergies to egg. Pain is medial nature that gets worse with walking. Patient states some improvement since her first injection on 12/10/2022. Without any side effects. She also states my knee feels much better since the first shot . She does state she has had her knee feel like it gives out on her . ARMOND YOU PA-C [address], [place], [address], [place] - [facility] 12/17/2022 13:53:33 3 text/html HPI:Ongoing left knee discomfort patient is here for viscosupplementation injection of the left knee joint. Patient denies any allergies to egg. Pain is medial nature that gets worse with walking. Patient states some improvement since her first injection on 12/17/2022. Without any side effects. She also states my knee feels much better since the 2nd shot . ARMOND YOU PA-C [address], [place], [address], [place] - [facility] 12/26/2022 15:19:41 3 text/html 41-year-old female bilateral knee arthritis for which she has upcoming Euflexxa which were pushing out approximately 4 weeks due to ongoing bilateral knee pain she is asking for cortisone injections in both knees pain is medial in nature worse with walking. She does have a high criticality allergy to lidocaine for which she will only have triamcinolone 40 mg injected analgesia will be with topical ethyl chloride for each injection. Patient states no allergy to cortisone injections. ARMOND YOU PA-C [address], [place], [address], [place] - [facility] 05/01/2023 10:40:11 OBGyn Episode No OBEpisode recorded.
--- OUTSIDE RECORDS SUMMARY | 2025-05-14 15:38 | XMS_ITS | Clinical Summary ---
Author Organization [facility] Address [address] [place] [address] Phone Care Team Providers Care Piler Name Role Phone Nita Carr MD Primary Care Provider + Allergies Active Allergy Reactions Criticality Noted Date Comments Ciprofloxacin Rash Low 12/31/2022 Fluorouracil-Adhesive Bandage Rash Low 2022 Ibuprofen Rash Low 12/31/2022 rash, itchy Iohexol 12/31/2022 Lidocaine Hives High 04/16/2023 Methylprednisolone 12/31/2022 Naproxen Rash Low 12/31/2022 rash, itchy Penicillins Rash Low 04/16/2023 Medications ondansetron (ZOFRAN-ODT) 4 MG disintegrating tablet take 1 tablet by mouth every 8 hours as needed for nausea and vomiting 3 Active albuterol 90 mcg/actuation inhaler 3 Active busPIRone (BUSPAR) 10 MG tablet Active clonazePAM (KLONOPIN) 0.5 MG disintegrating tablet 3 Active guaiFENesin-codeine (ROBITUSSIN AC) 100-10 mg/5 mL liquid Active sodium hyaluronate (EUFLEXXA) 10 mg/mL(mw 2.4 -3.6 million) injection syringe Inject 2 mL by intra-articu lar route for 21 days. 3 Active hydrOXYzine (VISTARIL) 25 MG capsule TAKE 1 CAPSULE BY MOUTH EVERY 8 HOURS NEEDED FOR ANXIETY 3 Active levETIRAcetam (KEPPRA) 500 MG tablet Take 1 tablet by mouth 2 (two) times a day. Active metroNIDAZOLE (FLAGYL) 500 MG tablet 3 Active midodrine (PROAMATINE) 5 MG tablet 3 Active ramelteon (ROZEREM) 8 mg tablet 3 Active sertraline (ZOLOFT) 100 MG tablet 3 Active topiramate (TOPAMAX) 100 MG tablet Take 1 tablet by mouth nightly at bedtime. 3 Active valACYclovir (VALTREX) 1000 MG tablet Active Active Problems No known active problems Social History Tobacco Use Types Packs/Day Years [...] Orientation Straight 04/01/2023 1: 52 PM EDT Plan of Treatment Health Maintenance Due Date Last Done Comments DEPRESSION SCREENING 1993 SMOKING Hx and SMOKELESS TOBACCO SCREENING 1994 HEPATITIS C SCREENING 1999 HIV ONE-TIME SCREENING (18-6 5 YEARS) 1999 PAP SMEAR 2002 MAMMOGRAM 2021 INFLUENZA VACCINE (#1) 2025 COVID-19 VACCINE (2024-2 6 season) 2025 Adult Td,Tdap Booster 08/22/2028 08/22/2018 , 06/24/2015 HEPATITIS A VACCINES Aged Out No long er eligible based on patient's age to complete this topic HIB VACCINES Aged Out No longer eligi ble based on patient's age to complete this topic MENINGOCOCCAL VACCINES (ACWY) Aged Out No longer eligible based on patient's age to complete this topic MENINGOCOCCAL VACCINES (B) Aged Out N o longer eligible based on patient's age to complete this topic PNEUMOCOCCAL VACCINES (0-49 years) Aged Out No longer eligible b ased on patient's age to complete this topic Medical Devices Not on file Insurance MEDICARE PART A & [place] [address] [place] [address] MEDICARE REPLACEMENT MEDICARE PART A & B CARE MEDICARE REPLACEMENT MEDICARE PART A & B [facility] ONE CARE MEDICARE REPLACEMENT MEDICARE PART A & B [facility] ONE CARE MEDICARE REPLACEMENT MEDICARE PART A & B [facility] ONE CARE MEDICARE REPLACEMENT MEDICARE PART A & B Care Teams Piler Relationship Specialty Start Date End Date Nita Carr MD PCP - General Internal Medicine 04/01/23 Additional Source Comments The information contained in this document represents components of the legal health record. It is not the complete legal health record.[facility]
--- OUTSIDE RECORDS SUMMARY | 2025-05-14 15:38 | XMS_ITS | Clinical Summary ---
Author Organization [facility] [place] [address] Care Team Providers Care Account General Manager Name Role Phone Nita Carr MD Primary Care Provider [phone]- [phone] Social History Tobacco Use Types Packs/Day Years Used Date Smoking Tobacco: Never Assessed Comments Unknown Sex and Gender Information Value Date Recorded Sex Assigned at Not on file Legal Sex Female 2:08 AM EST Gender Identity Not on file Sexual Orientation Not on file Plan of Treatment Health Maintenance Due Date Last Done Comments Breast Cancer Screening 1980 DTaP,Tdap,and Td Vaccines (1 - Tdap) 01/26/2000 Hepatitis B Vaccines (1 of 3 - 19+ 3-dose series) 01/26/2000 Cervical Cancer Screening: P ap Smear 2002 HPV Vaccines (1 - 3-dose SCD M series) 01/26/2008 HIV Screening 06/10/2022 Hepatitis C Screening 06/10/2022 Social Influencers of Health Screening 06/10/2022 Depression Screening 07/08/2024 COVID-19 Vaccine ( - 2023-2 5 season) 2025 Influenza Vaccine (#1) 2025 RSV Immunization Adult Patie nts (1 - 1-dose 75+ series) 01/26/2056 HIB Vaccines Aged Out No longer eligi ble based on patient's age to complete this topic Hepatitis A Vaccines Aged Out No long er eligible based on patient's age to complete this topic IPV Vaccines Aged Out No longer eligi ble based on patient's age to complete this topic MMR Vaccines Aged Out No longer eligi ble based on patient's age to complete this topic Meningococcal ACWY Vaccine Aged Out N o longer eligible based on patient's age to complete this topic Meningococcal B Vaccine Aged Out No l onger eligible based on patient's age to complete this topic Pneumococcal Vaccine: Pediat rics (0 to 5 Years) and At-Risk Patients (6 to 49 Years) Aged Out No longer eligible b ased on patient's age to complete this topic RSV Immunization Patients Un regino 20 months Aged Out No longer eligible b ased on patient's age to complete this topic Varicella Vaccines Aged Out No longer eligible based on patient's age to complete this topic Advance Directives Documents on File Type Date Recorded Patient Behaviour Support Teacher Expl anation Health Care Decision (hx) 08/02/2023 AD DAMON DIRECTIVE Health Care Decision (hx) 07/10/2023 HE ALTH CARE PROXY Care Teams Account General Manager Relationship Specialty Start Date End Date Nita Carr MD [address] [place] [id number] PCP - General 10/31/17
== END 2025-05-14 15:12 | disposition home or self-care (01) ==
LOC: HO.HMCHD 13:32
PROVIDERS: PCP Internal Medicine; Visit Provider Internal Medicine
DX: Z00.00 Encounter for general adult medical examination without abnormal findings (principal); R56.9 Unspecified convulsions; R00.0 Tachycardia, unspecified; E11.69 Type 2 diabetes mellitus with other specified complication; E66.9 Obesity, unspecified; D72.12 Drug rash with eosinophilia and systemic symptoms syndrome; T50.905A Adverse effect of unspecified drugs, medicaments and biological substances, initial encounter

== ENCOUNTER → 2025-05-14 13:32 | Outpatient (BNVA) | payer OTHER, SELFPAY | PROVIDERS: PCP Internal Medicine; Visit Provider Internal Medicine | DX: Z00.00 Encounter for general adult medical examination without abnormal findings (principal); R56.9 Unspecified convulsions; R00.0 Tachycardia, unspecified; E11.69 Type 2 diabetes mellitus with other specified complication; E66.9 Obesity, unspecified; D72.12 Drug rash with eosinophilia and systemic symptoms syndrome; T50.905A Adverse effect of unspecified drugs, medicaments and biological substances, initial encounter; F32.A Depression, unspecified; F41.9 Anxiety disorder, unspecified; Z13.31 Encounter for screening for depression; Z13.39 Encounter for screening examination for other mental health and behavioral disorders; Z79.899 Other long term (current) drug therapy | CPT/HCPCS: 96127; 99212; 99396 ==

== ENCOUNTER 2025-05-17 09:06 | Outpatient (REF) | payer OTHER, SELFPAY ==
--- OUTSIDE RECORDS SUMMARY | 2025-05-17 09:50 | XMS_ITS | Clinical Summary ---
Author Organization [facility] Address [address] [address] Phone Care Team Providers Care Stage Driver Name Role Phone Nita Carr MD Primary Care Provider [phone]- [phone] Allergies Active Allergy Reactions Criticality Noted Date Comments Adhesive Tape 12/31/2022 Ciprofloxacin 12/31/2022 Lidocaine Hives High 04/16/2023 Methylprednisolone 12/31/2022 Metronidazole Rash Low 11/12/2023 Ibuprofen 12/31/2022 Naproxen 12/31/2022 Iohexol 12/31/2022 Penicillins Rash Low 04/16/2023 Medications levETIRAcetam (KEPPRA) 500 MG tablet Take 500 mg by mouth in the morning and 500 mg in the evening. Active sertraline (ZOLOFT) 100 MG tablet Take 100 mg by mouth 1 (one) time each day Active Umeclidinium [place] 62.5 MCG/ACT aerosol powder Inhale Active Albuterol Sulfate 108 (90 Base) MCG/ACT aerosol powder Inhale Activ e midodrine (PROAMATINE) 5 MG tablet TAKE TWO TABLETS BY MOUTH EVERY MORNING, TAKE TWO TABLETS EVERY EVENING, AND TAKE TWO TABLETS AT BEDTIME 90 tablet 3 03/18/2024 Active furosemide (Lasix) 20 MG tabletIndicatio ns:Stage 3a chronic kidney disease (HCC) Take 1 tablet (20 mg total) by mouth 3 times weekly: Sat and Saturday morning 36 tablet 1 07/24/2024 Active Dupixent 300 MG/2ML solution auto-injector 01/06/2025 Activ e Active Problems Problem Noted Date Diagnosed Date Bilateral lower leg edema 07/23/2024 Acute nontraumatic kidney injury 11/12/2023 Stage 3a chronic kidney disease 11/12/2023 Anxiety 01/16/2023 Cancer cervix screening - wanted 01/16/2023 Chronic pelvic pain of female 01/16/2023 Dyspnea on exertion 01/16/2023 Fatigue 01/16/2023 Flank pain 01/16/2023 Galactorrhea not associated with childbirth 01/05 Past history of section 01/16 History of sexually transmitted disease 01/17/20 23 H/O: obstetric problem 01/16/2023 Headache 01/16/2023 Migraine with aura 01/16/2023 Obese class I 01/16/2023 Pain of knee region 01/16/2023 Patient encounter status 01/16/2023 Seizure 01/16/2023 Recurrent major depressive episodes, moderate Tingling of skin 01/16/2023 Stone in kidney 01/02/2023 Hypotension 01/02/2023 Asthma 11/11/2019 Palpitations 11/11/2019 Immunizations Immunization Administration Dates Next Due Influenza Whole 06/05/2007 Influenza, Unspecified 03/25/2021,2019,05/08/2019,04/09/2018,04/09,04/30/2016,04/29/2015 Moderna SARS-COV-2 06/23/2021,12/23/2020, 021 Pneumococcal Polysaccharide 08/26/2017 Td, Unspecified 09/09/2006 Tdap 08/22/2018,06/24/2015 Family History Relation Status Comments Father Mother Alive Social History Tobacco Use Types Packs/Day Years Used Date Smoking Tobacco: Former Cigarettes Smokeless Tobacco: Never Tobacco Cessation:Counseling Given: Not Answered Alcohol Use Standard Drinks/Week Comments Never 0 (1 standard drink = 0.6 oz pur e alcohol) Comments Unknown Sex and Gender Information Value Date Recorded Sex Assigned at Not on file Legal Sex Female 10:23 AM EDT Gender Identity Not on file Sexual Orientation Not on file Last Filed Vital Signs Vital Sign Reading Time Taken Comments Blood Pressure 118/59 01/19/2025 1:14 PM EDT Pulse 65 01/19/2025 1:14 PM EDT Temperature - - Respiratory Rate - - Oxygen Saturation 98% 01/19/2025 1:14 PM EDT Inhaled Oxygen Concentration - - Weight 80.2 kg (176 lb 12.8 oz) 01/19/2025 1:14 PM EDT Height - - Body Mass Index - - Plan of Treatment Upcoming Encounters Date Type Department Care Team (Late st Contact Info) Description 07/20/2025 10:45 AM EST Office Visit [facility] [address] [address] Yomaira Sevilla ARNP [address] [address] Health Maintenance Due Date Last Done Comments Hepatitis B Vaccine (1 of 3 - 19+ 3-dose series) 01/26/2000 Pneumococcal Vaccine: Peds ( 0 to 5 Years) and At-Risk Patients (6 to 49 Years) (2 of 2 - PCV) 08/26/2018 08/26/2017 Diabetes: Hemoglobin A1C 12/04/2024 Diabetes: Ophthalmology Exam 12/04/2024 Diabetes: Pedal Pulse Checked 12/04/2024 Diabetes: Sensory Foot Exam 12/04/2024 Diabetes: Visual Foot Exam 12/04/2024 Influenza Vaccine (#1) 2025 1, 06/13/2020, 05/08/2019, Additional history exists Insurance [facility] ([id number]) [facility] ([id number]) Care Teams Stage Driver Relationship Specialty Start Date End Date Nita Carr MD [address] [place], [place] PCP - General Internal Medicine 12/26/23
--- OUTSIDE RECORDS SUMMARY | 2025-05-17 09:50 | XMS_ITS | Data Portability ---
Author Organization [employer] [facility], [facility] Address [address] [place] [address] Care Team Providers Care Surgical Resident Name Role Phone HIM CCA OTHER Assessment [...] 4 16 /min 98 % 98 % 02882.8 4 g 78 /min 97.8 [degF] 92/60 [...] ICD10 Code Diagnosis IMO Codes Diagnosis Note [id number] Rohit Dove MD Main - instED [address] [place] [address] 01/30/2024 14:26:33 01/31/2024 08:37:19 Seasonal allergy 106610154 J30.2 Patient declines strep/COVI D test at [...] Soler Member ID Guarantor Name 01/30/2024 1 [facility] - DOS ON OR AFTER 2022 - DUAL ELIGIBLE - [employer] AND ONE CARE (MEDICARE REPLACEMENT/AD VANTAGE - HMO) Amyisaac Garrisono [id number] Amy I Dobson Notes Date Note Type [...] .................. .................. .................. .................. .................. .................. ............... Underwriting Internship Note From Charles Perez: Pt sts no [...] Throat examined unremarkable. Afebrile , lungs clear. [facility] contacted and advised pt she can call if she needs service in the future. Pt education on signs indicating the ER. .................. .................. .................. .................. .................. .................. .................. ............... Disposition: Fulfilled Rohit Dove MD [address] [place] [address],[address], [place], [address], [employer] 01/30/2024 19:14:31 OBGyn Episode No OBEpisode recorded.
--- OUTSIDE RECORDS SUMMARY | 2025-05-17 09:50 | XMS_ITS | Clinical Summary ---
Author Organization [facility] Address [address] [place] [address] Phone Care Team Providers Care Assistant Farm Operations Manager Name Role Phone Nita Carr MD [...] patient's age to complete this topic IPV VACCINES Aged Out No longer eligi ble [...] file Insurance MEDICARE PART A & [place] [address] [place] [address] MEDICARE REPLACEMENT MEDICARE PART A & B [facility] CARE MEDICARE REPLACEMENT MEDICARE PART A & B [facility] ONE CARE MEDICARE REPLACEMENT MEDICARE PART A & B [facility] CARE MEDICARE REPLACEMENT MEDICARE PART A & B [facility] ONE CARE MEDICARE REPLACEMENT MEDICARE PART A & B Care Teams Assistant Farm Operations Manager Relationship Specialty Start Date End Date Nita Carr MD PCP - General Internal Medicine 04/01/23 Additional Source Comments The information contained in this document represents components of the legal health record. It is not the complete legal health record.[facility]
--- OUTSIDE RECORDS SUMMARY | 2025-05-17 09:50 | XMS_ITS | Encounter Summary ---
Author Organization [facility] Address [address] [place] [address] Phone Care Team Providers Care Firer Watertender Name Role Phone Nita Carr MD Primary Care Provider + Reason for Referral * Consultation (Within 1 month) - New Request Specialty Diagnoses / Procedures Referred By Bolivar murdock Referred To Contact Allergy and Immunology Olivia Meier MD [address] [place] [address] Phone: tel: fax: [address] [address] Phone: tel: Referral ID Status Reason Start Date Expiration Date V isits Requested Visits Authorized [id number] New Request 01/05/2025 01/05/2026 1 1 Encounter Details Date Type Department Care Team (Late st Contact Info) Description 01/05/2025 Transcribe Orders [facility] Referral Management [address] [place] [address] Olivia Meier MD [address] [place] [address] Social History Tobacco Use Types Packs/Day Years [...] Diagnoses Order Schedule Ambulatory referral to [facility] [place] Referral Routine Ordered: 01/05/2025 documented as of this encounter Visit Diagnoses Not on filedocumented in this encounter Care Teams Firer Watertender Relationship Specialty Start Date End Date Nita Carr MD PCP - General Internal Medicine 04/01/23 documented as of this encounter Additional Source Comments The information contained in this document represents components of the legal health record. It is not the complete legal health record.[facility]
--- OUTSIDE RECORDS SUMMARY | 2025-05-17 09:51 | XMS_ITS | Data Portability ---
Author Organization [facility] Address [address] [place] [address] Care Team Providers Care Heel Seat Sander Name Role Phone STASTITI CHILDS Primary Care Provider [phone] Assessment Encounter Date Assessment Date Assessment LastModified by Organization Details LastModified Time 11/02/2022 11/02/2022 Is a 42-year-old female who comes in initially seen by Dr. Clemente for which he ordered an MRI of her left knee joint concern for meniscus tearing. However the patient states she has had [address] Cody Feng at [facility]. Her main complaint is that [...] [facility], [address], [place], [address], 10:40:58 Kenalog 40 mg/mL suspension for injection 2022 023 [email or web address] [facility], [address], [place], [address], 10:40:58 Euflexxa 10 mg/mL (mw 2.4-3.6 million) intra-artic ular syringe 2022 023 [email or web address] [facility], [address], [place], [address], 10:34:38 Euflexxa 10 mg/mL (mw 2.4-3.6 million) intra-artic ular syringe 2022 023 [email or web address] [facility], [address], [place], [address], 10:34:38 Euflexxa 10 mg/mL (mw 2.4-3.6 million) intra-artic ular syringe 2022 023 [email or web address] [facility], [address], [place], [address], 10:34:38 Patient TargetsNo targets recorded. Patient Instructions Encounter Date Encounter Id Patient Instructions Last Modified By Organization Details Last Modified Time 12/10/2022 [id number] You have been pr ovided with a [...] or contact us through the portal RHINA. [email or web address] Not available 12/10/2022 13:29:02 12/17/2022 [id number] You have been pr ovided with a [...] portal [email or web address]. Not available 12/17/2022 11:08:55 12/26/2022 [id number] You have been pr ovided with a [...] RHINA. 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 Procedures Surgical History Date Name Laterality Status Provider Name and Address Organization Details Recorded Time 3 Knee Joint/Bursa Asp & Inj completed ARMOND YOU PA-C [address], [place], [address], [place] [facility] [place] 05/01/2023 10:27:37 3 Euflexxa Knee Inj completed ARMOND YOU PA-C [address], [place], [address], [facility] 12/26/2022 14:57:23 3 Euflexxa Knee Inj completed ARMOND YOU PA-C [address] [facility], [place], [address], [facility] 12/17/2022 11:09:08 3 Euflexxa Knee Inj completed ARMOND YOU PA-C [address], [place], [address], [place] [facility] [place] 12/10/2022 13:59:24 Knee arthroscopy/s urgery completed Mony Luna [facility] [place] 09/28/2022 10:14:17 Imaging Results None recorded. Procedure Notes None recorded. Medical Equipment None Reported. Allergies Allergen ID Allergen Name Allergen Category Reaction Reaction Severity Criticality Documentation Date Start Date Code Code System Note Provider Name and Address Organization Details Recorded Time 3229 lidocaine medicatio n hives severe high 11/04/2022 6387 RxNorm ARMOND YOU PA-C [address], [place], [address], [facility] 17:35:35 Medications Name Sig Start Date [...] Updated DateTime 11/02/2022 149.86 cm 32.3 kg/m2 [address]132.[address] [facility] 11/02/2022 14:30:09 Date Recorded Body height Provider Name an d Address Organization Details Last Updated DateTime 12/10/2022 149.86 cm Brittaney De Leon [facility] 12/10/2022 13:32:53 Date Recorded Body height Provider Name an d Address Organization Details Last Updated DateTime 12/17/2022 149.86 cm Brittaney De Leon [facility] 12/17/2022 13:14:53 Social History None recorded. 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 3311755034 564999 M79.4 Osteoarthr itis of left knee joint 8822486127 17180 M17.12 [id number] ARTURO ESCUDERO [address] [place] [address] 12/10/2022 13:20:48 12/10/2022 16:09:29 Osteoarthritis of left knee joint 5958976121 01096 M17.12 57295 ARTURO ESCUDERO [address] [place] [address] 12/17/2022 12:36:26 12/17/2022 13:53:15 Osteoarthritis of left knee joint 2829653249 22280 M17.12 [id number] ARTURO ESCUDERO [facility] [address] [facility] [address] [facility] [place] [address] 12/26/2022 14:15:24 12/26/2022 15:28:05 Osteoarthritis of left knee joint 0512373891 21310 M17.12 46004 ARTURO ESCUDERO [facility] [address] [facility] [address] [facility] [place] [address] 05/01/2023 09:58:49 05/01/2023 10:39:17 Osteoarthritis of left knee joint 2047501745 30008 M17.12 Osteoarthr itis of right knee joint 1093207511 81724 M17.11 Health Concerns Section Related Observation LastModified by Organization Detai ls LastModified Time None Recorded Concern Status LastModified by Organization Details LastModified Time None Recorded Advance Directives Directive None Recorded Payers Insurance Date Sequence Insurance Name Policy Number Policy Soler Covered Member ID Soler Member ID Guarantor Name 12/05/2022 1 [facility] - DOS PRIOR TO 2022 (MEDICARE REPLACEMENT/AD VANTAGE - PPO) Amy Cruz [id number] Amy Cruz 07/29/2023 1 [facility] - DOS ON OR AFTER 2022 - MEDICARE ADVANTAGE [place] (MEDICARE REPLACEMENT/AD VANTAGE - PPO) Amy Cruz [id number] Amy Cruz Notes Date Note Type Note [...] [address] Cody Feng at [facility] including lateral release and meniscus [...] X-rays both knees reveal minimal degenerative change. [facility] [email or web address] [place] [address] ___Patient: AMY CRUZ Deanna /Age/Sex: 1980 - 42 - FUnit#: [id number] [facility]/REG CLIAccount#: [id number] Mnemonic/Ordering Site: [email or web address]/SPMAINOrdering Physician: INMA CLEMENTE MD MR Knee LT WO - [...] MONALISA FLORES MDElectronically Signed by: MONALISA FLORES [facility] Date/Time: 10/21/22 1444Sign date/Time: 10/21/22 144 ARMOND YOU PA-C [address], [place], [address], [facility] 11/04/2022 17:41:28 3 text/html Assessment & Plan: Date of visit 11/02/2022 Is a 42-year-old female who comes in initially seen by Dr. Clemente for which he ordered an MRI of her left knee joint concern for meniscus tearing. However the patient states she has had [address] Cody Feng at [facility]. Her main complaint is that [...] up by neurology. ARMOND YOU PA-C [address] [facility] [address], [place], [address], [facility] 12/10/2022 14:01:46 3 text/html HPI:Ongoing left [...] ARMOND YOU PA-C [address], [place], [address], [facility] 12/17/2022 13:53:33 3 text/html HPI:Ongoing left [...] ARMOND YOU PA-C [address], [place], [address], [facility] 12/26/2022 15:19:41 3 text/html 41-year-old female [...] ARMOND YOU PA-C [address], [place], [address], [facility] 05/01/2023 10:40:11 OBGyn Episode No OBEpisode recorded.
--- OUTSIDE RECORDS SUMMARY | 2025-05-17 09:51 | XMS_ITS | Clinical Summary ---
Author Organization [employer] [facility] [place] [address] Care Team Providers Care Block Paver Name Role Phone Nita Carr MD Primary Care Provider [phone] Social History Tobacco Use Types Packs/Day Years [...] Documents on File Type Date Recorded Patient Drafter Patent Expl anation Health Care Decision (hx) 08/02/2023 AD DAMON DIRECTIVE Health Care Decision (hx) 07/10/2023 HE ALTH CARE PROXY Care Teams Block Paver Relationship Specialty Start Date End Date Nita Carr MD [address] [place] [address] PCP - General 10/31/17
[2025-05-17 13:23] LABS: MANUAL DIFF FLAG NO
[2025-05-17 13:29] LABS: Hematocrit 39.0 % (37.0-47.0); Hemoglobin 12.5 g/dl (12.0-16.0); Imm Gran Abs Auto 0.04 X10*3/uL (0.00-0.03); Imm Gran Pct Auto 0.3 % (0.0-0.4); Lymphocytes Absolute Auto 3.1 X10*3/uL (1.2-4.9); Mean Corpuscular HGB Conc 32.1 g/dl (31.0-35.0); Mean Corpuscular Hemoglobin 25.6 pg (27.0-33.0); Mean Corpuscular Volume 79.9 fL (80.0-98.0); NRBC Abs Auto 0.000 X10*3/uL (0.0-0.012); NRBC Pct Auto 0.0 /100WBC (0.0-0.2); Platelet Count 397 X10*3/uL (160-400); Red Blood Count 4.88 X10*6/uL (4.20-5.50); White Blood Count 13.7 X10*3/uL (4.8-10.8)
[2025-05-17 14:23] LABS: Alanine Aminotransferase 26 U/L (0-31); Albumin Level 4.1 g/dL (3.5-5.0); Alkaline Phosphatase 144 U/L (39-117); Anion Gap 12 (12-20); Aspartate Amino Transferase 30 U/L (5-31); Blood Urea Nitrogen 14 mg/dL (9-16); Calcium 9.6 mg/dL (8.4-10.2); Carbon Dioxide 27 mmol/L (22-29); Chloride 103 mmol/L (96-108); Cholesterol 237 mg/dL (<200); Estimated Glomerular Filt Rate 51; HDL Cholesterol 52 mg/dL (>40); Potassium 3.5 mmol/L (3.3-5.1); Sodium 138 mmol/L (135-145); Total Protein 7.6 g/dL (6.5-8.0); Triglycerides 101 mg/dL (<150)
[2025-05-17 14:28] LABS: Vitamin B12 421 pg/mL (200-900)
== END 2025-05-17 09:07 | disposition home or self-care (01) ==
LOC: HO.HKASLDS 09:06
PROVIDERS: PCP Internal Medicine; Visit Provider Internal Medicine
DX: Z13.89 Encounter for screening for other disorder (principal)
CPT/HCPCS: 36415; 80053; 80061; 82306; 82607; 83036; 85025

== ENCOUNTER 2025-05-17 13:28 | Emergency (ER) | payer OTHER, SELFPAY ==
--- NOTE | 2025-05-17 | ECG_ITS ---
Test Reason : CP Blood Pressure : */* mmHG Vent. Rate : 80 BPM Atrial Rate : 80 BPM P-R Int : 150 ms QRS Dur : 84 ms QT Int : 386 ms P-R-T Axes : 53 6 10 degrees QTcB Int : 445 ms Sinus rhythm with occasional Premature ventricular complexes Cannot rule out Anterior infarct , age undetermined Abnormal ECG No previous ECGs available Referred By: Generic ED Physician Electronically Signed By: SHANTA ENRIQUE MD
--- NOTE | ~2025-05-17 | CT_ITS ---
EXAMINATION: CT HEAD WITHOUT CONTRAST CLINICAL INFORMATION: Headache on warfarin COMPARISON: None available. TECHNIQUE: Contiguous axial imaging was performed from the skull base to vertex without intravenous administration of contrast. DLP: [id number] examination was performed using dose optimization techniques as appropriate, variously including the following: *Automated exposure control *Adjustment of mA and/or kV according to patient size (this includes techniques or standardized protocols for targeted exams where dose is matched to indication/reason for exam; i.e. extremities or head) *Use of iterative reconstruction technique FINDINGS: There is right frontal lobe and left posterior parietal lobe encephalomalacia from old insult. There is no acute infarction evolution. There is no acute intra-axial or extra-axial bleed, masses or midline shift. The lateral ventricles are symmetrical in size but enlarged. No abnormality seen in the posterior fossa. Bone windows reveal no calvarial abnormality. There is no scalp soft tissue abnormality. There is small polyp or retention cyst right maxillary sinus. Rest of paranasal sinuses are unremarkable.. There is no scalp soft tissue abnormality. CT/CT head/brain wo IV con IMPRESSION: No acute intracranial process seen. Electronically signed by: Daryl Burks MD 05/17/2025 03:55 PM EST
--- NOTE | ~2025-05-17 | XR_ITS ---
EXAMINATION: XR CHEST CLINICAL INFORMATION: pain COMPARISON: None available. TECHNIQUE: Frontal view of the chest was obtained. FINDINGS: The cardiomediastinal silhouette is within normal limits. The lungs are well expanded. There is no focal consolidation, edema, or effusion. No pneumothorax. No acute osseous abnormality. XR/XR chest 1V IMPRESSION: No acute findings Electronically signed by: Adonay Oro MD 05/17/2025 03:51 PM EST
[2025-05-17 13:47] VITALS: BP 120/75; BP 140/82; PULSE 150; PULSE 95; RESP 20; TEMP -17.7; TEMP 0; O2SAT 97; O2SAT 98; BMI 38.2
--- NOTE | 2025-05-17 14:30 | ED.GENADULT ---
HPI - General Adult General Chief complaint: General Medical Stated complaint: DIZZINESS, CHEST PAIN X2 DAYS PER EMS Time Seen by Provider: 05/17/25 13:58 Source: patient, EMS and old records reviewed Mode of arrival: EMS Limitations: no limitations History of Present Illness ED Provider: JEANNIE HO narrative: 45-year-old female with past medical history of diabetes, seizures, chronic respiratory failure on 2 L nasal cannula oxygen, interstitial lung disease, pulmonary embolus on warfarin, DRESS syndrome here with complaint of not getting her metoprolol refilled. She is very vague but states her primary care went out of town and she is trying to get her metoprolol and has been out of it for a month. Her patient portal states she takes 50 mg of metoprolol tartrate in the a.m. and 25 mg metoprolol tartrate in the p.m. she reports her blood pressures were 160s over 100s today and she felt foggy, had a headache, felt her chest was tight. She also notes she has chronic right hip pain. She denies any new rash, fevers, trauma to the area. She denies any new cough, sputum, fevers. Her blood pressure in the ED is 120s over 80s she states she still has some chest tightness, she is compliant with all other medications including her warfarin MD complaint: Elevated Onset (ago): month(s) (One-month) Location: head and chest Radiation: non-radiation Severity: mild Quality: aching and constant Pain Consistency: intermittent Relieving factors: none Exacerbating factors: none Associated symptoms: chest pain and headaches Treatments prior to arrival: none Related Data Home Medications ?Medication ?Instructions ?Recorded ?Confirmed blood sugar diagnostic (FreeStyle #10 ea 05/14/25 05/14/25 Lite Strips) blood-glucose meter (FreeStyle #1 ea 05/14/25 05/14/25 Lite Meter kit) cholecalciferol (vitamin D3) 125 125 mcg PO DAILY 05/14/25 05/14/25 mcg (5,000 unit) capsule hydroxyzine pamoate 50 mg capsule 50 mg PO TID 05/14/25 05/14/25 lebrikizumab-lbkz 250 mg/2 mL mg subcut 05/14/25 05/14/25 subcutaneous pen injector (Ebglyss Pen) levetiracetam 1,000 mg tablet 1,000 mg PO BID 05/14/25 05/14/25 loratadine 10 mg tablet 10 mg PO DAILY 05/14/25 05/14/25 midodrine 5 mg tablet 5 mg PO TID 05/14/25 05/14/25 mirtazapine 45 mg tablet 45 mg PO BEDTIME 05/14/25 05/14/25 montelukast 10 mg tablet 10 mg PO DAILY 05/14/25 05/14/25 naloxone 4 mg/actuation nasal spray intranasal 05/14/25 05/14/25 ondansetron HCl 4 mg tablet 4 mg PO Q8H PRN nausea/vomiting 05/14/25 05/14/25 tacrolimus 0.1 % topical ointment 1 appl topical BID 05/14/25 05/14/25 warfarin 2 mg tablet 2 - 4 mg PO DAILY 05/14/25 05/14/25 Previous Rx's ?Medication ?Instructions ?Recorded melatonin 10 mg capsule 10 mg PO BEDTIME PRN insomnia 90 05/14/25 days #90 caps pantoprazole 40 mg tablet,delayed 40 mg PO DAILY 90 days #90 tabs 05/14/25 release pregabalin 50 mg capsule 50 mg PO TID #90 caps 05/14/25 thiamine HCl (vitamin B1) 100 mg 100 mg PO DAILY #90 caps 05/14/25 capsule metoprolol tartrate 25 mg tablet See Rx Instructions PO DAILY 90 05/17/25 days #270 tabs Allergies Allergy/AdvReac Type Severity Reaction Status Date / Time ciprofloxacin Allergy Intermediate hives, Verified 05/17/25 13:51 internal burning epinephrine (From Epi E-Z Allergy Intermediate hives, Verified 05/17/25 13:51 Pen) internal burning ertapenem Allergy Intermediate hives, Verified 05/17/25 13:51 internal burning ibuprofen (From Motrin) Allergy Intermediate hives, Verified 05/17/25 13:51 internal burning iodine Allergy Intermediate hives, Verified 05/17/25 13:51 internal burning iohexol (From Omnipaque) Allergy Intermediate hives, Verified 05/17/25 13:51 internal burning methylprednisolone (From Allergy Intermediate hives, Verified 05/17/25 13:51 Medrol) internal burning naproxen Allergy Intermediate hives, Verified 05/17/25 13:51 internal burning Penicillins Allergy Intermediate hives, Verified 05/17/25 13:51 internal burning vancomycin Allergy Intermediate hives, Verified 05/17/25 13:51 internal burning Review of Systems Review of Systems: Constitutional : No Fever, No Chills, No Fatigue ENT/Mouth : No sore throat, No Rhinorrhea Eyes: No Eye Pain, No Swelling, No Redness Cardiovascular : pos Chest Pain, No SOB, No Dyspnea on Exertion Respiratory : No Cough, No Sputum Gastrointestinal : No Nausea, No Vomiting, No Diarrhea, No abdominal Pain Genitourinary : No Dysuria, No Urinary Frequency, No Hematuria, Musculoskeletal : No joint pain, No Myalgias, No Joint Swelling Skin : No Skin Lesions, No rash Neuro : No Weakness, No Numbness, No Dizziness, positive Headache Psych : No Anxiety/Panic, No Depression Heme/Lymph: No Bruising, No Bleeding,No Lymphadenopathy Endocrine : No Polyuria, No Polydipsia All other systems reviewed and are negative PMFSH Past Medical History Attestation statement: The following information was validated with the patient. Source: old records reviewed Medical History Pulmonary embolism History of coma Chronic respiratory failure Interstitial lung disease DRESS syndrome Diabetes mellitus type 2 in obese Seizures Tachycardia Social History Social History Housing: Apartment Patient Tobacco Use Status: Former Tobacco user Years Smoked: occasionally for 2 years Smoked in Last 30 Days: No e-Cigarette/Vaping Use: Never Used Use of substances other than those prescribed or required for medical reasons: No Advance Directives: No Advance Directives Information Provided: Yes Do you have a plan to hurt others: No Plan Patient : No Current occupational status: unemployed Physical Exam ED Vital Signs: Vital Signs - 24 hr 05/17/25 13:47 05/17/25 15:19 05/17/25 16:04 Temperature 0 F L 98.2 F Pulse Rate 95 100 85 Respiratory Rate 20 16 Blood Pressure 120/75 166/108 H 126/84 Pulse Oximetry 97 100 Oxygen Delivery Method Room Air Nasal Cannula Oxygen Flow Rate 3 BMI result Body Mass Index 38.2 Appearance: Alert. Oriented X3. No acute distress. Eyes: Pupils equal, round and reactive to light. ENT: Pharynx normal. Neck: Normal inspection. Neck supple. CVS: Normal heart rate and rhythm. Pulses normal. Respiratory: No respiratory distress. Breath sounds diminished throughout. Abdomen: Soft and nontender. Skin: Skin warm and dry. Pale skin color. Normal skin turgor. Extremities: No lower extremity edema. Neuro: Oriented X 3. No motor deficit. No sensory deficit. CN2-12 intact Course Course Course Narrative: 4:08 PM 05/17/2025 (JEANNIE STOUT): On discharge the patient's blood pressure was stable no tachycardia can be DC Medications Administered Discontinued Medications Generic Name Dose Route Start Last Admin Trade Name Ramón PRN Reason Stop Dose Admin Metoprolol Tartrate 25 mg 05/17/25 15:11 05/17/25 15:19 Metoprolol Tartrate 25 Mg Tablet PO 05/17/25 15:12 25 mg ONCE ONE Administration Protocol Oxycodone HCl 10 mg 05/17/25 14:50 05/17/25 15:18 Oxycodone Hcl Immed Release 5 Mg Tablet PO 05/17/25 14:51 10 mg ONCE ONE Administration Medical Decision Making Medical Decision Making [facility] Narrative: 45-year-old female with past medical history of diabetes, seizures, chronic respiratory failure, interstitial lung disease, pulmonary embolus on warfarin, DRESS syndrome here with complaint of headaches, chest pains, feeling foggy, chronic right hip pain she is blaming a lot of her symptoms on the fact that she has not had metoprolol due to lack of refill for 1 month. On exam she has no active signs of end-organ dysfunction but she does have increasing blood pressure and elevated heart rate. She is compliant with her warfarin. She has no infectious symptoms. At this time we will obtain EKG, basic labs, chest x-ray, CT head, start on analgesia for her chronic right hip pain, give her a dose of her oral metoprolol. Differential Diagnosis Differential Diagnoses: The differential diagnosis associated with the presentation includes Her right hip pain appears chronic to me there is no signs of infection she is neurovascularly intact distal Her chest pain is atypical she is on Coumadin if INR is therapeutic I do not suspect PE, she will get an EKG and troponin x1 Her blood pressure is up and her heart rate at 1 point on the monitor was 130 sinus tach P waves noted I am going to dose her with his her oral metoprolol I did check her patient portal she has a new refill already in the pharmacy I am hoping that her symptoms will improve after treatment Her stroke score is negative but she reports a mild headache it was much worse earlier she is on Coumadin I did order CT head to rule intracranial hemorrhage If her EKG and troponin are flat I have no concerns for ACS Admission/Observation Consideration of admission/observation: Escalation of care including admission/observation considered Her vital signs are stable she has refills at her pharmacy now Normal kidney function, normal troponin, slight bump in BNP given oral Lasix We will DC home with further outpatient monitoring and instructed to take her nighttime metoprolol Lab Data MDM Lab Attestation statement: I reviewed the patient's lab results. No signs of end-organ damage She has chronic leukocytosis this is not new I do not suspect infection 05/17/25 14:55 05/17/25 14:55 Labs: Lab Results 05/17/25 05/17/25 05/17/25 Range/Units 14:50 14:51 14:55 WBC 16.2 H (4.8-10.8) X10*3/uL RBC 4.72 (4.20-5.50) X10*6/uL Hgb 12.3 (12.0-16.0) g/dl Hct 37.3 (37.0-47.0) % MCV 79.0 L (80.0-98.0) fL MCH 26.1 L (27.0-33.0) pg MCHC 33.0 (31.0-35.0) g/dl RDW 16.0 (11.0-16.0) % Plt Count 337 (160-400) X10*3/uL MPV 9.4 (9.4-12.3) fL Immature Gran % (Auto) 0.4 (0.0-0.4) % Neut % (Auto) 75.2 H (45-73) % Lymph % (Auto) 17.3 L (20-40) % Moffat % (Auto) 6.2 (2-11) % Eos % (Auto) 0.5 (0-4) % Baso % (Auto) 0.4 (0-2) % Lymph # (Auto) 2.8 (1.2-4.9) X10*3/uL [place] # (Auto) 1.0 (0.1-1.2) X10*3/uL Eos # (Auto) 0.1 (0.0-0.4) X10*3/uL Baso # (Auto) 0.1 (0.0-0.2) X10*3/uL Abs Immat Gran (auto) 0.07 H (0.00-0.03) X10*3/uL Absolute Neuts (auto) 12.2 H (2.0-8.3) x10*3/uL Absolute Nucleated RBC 0.000 (0.0-0.012) X10*3/uL Nucleated RBC % (auto) 0.0 (0.0-0.2) /100WBC PT 26.7 H (11.2-13.5) SEC INR 2.2 H (0.9-1.1) Sodium 138 (135-145) mmol/L Potassium 3.7 (3.3-5.1) mmol/L Chloride 102 (96-108) mmol/L Carbon Dioxide 28 (22-29) mmol/L Anion Gap 12 (12-20) BUN 17 H (9-16) mg/dL Creatinine 1.15 (0.5-1.4) mg/dL Estim Creat Clear Calc 59.3 Estimated GFR 51 Random Glucose 78 (60-115) mg/dL Calcium 9.5 (8.4-10.2) mg/dL Magnesium 2.2 (1.6-2.6) mg/dL Total Bilirubin 0.5 (0.0-1.0) mg/dL AST 25 (5-31) U/L ALT 25 (0-31) U/L Alkaline Phosphatase 144 H (39-117) U/L Troponin I High Sens < 2.7 (<3.5-17.0) ng/L NT-Pro-B Natriuret Pep 417.2 H (<300) pg/mL Total Protein 7.4 (6.5-8.0) g/dL Albumin 4.0 (3.5-5.0) g/dL Influenza Type A (PCR) NEGATIVE (Negative) Influenza Type B (PCR) NEGATIVE (Negative) RSV RNA Qual (PCR) NEGATIVE (Negative) SARS-CoV-2 RNA (RT-PCR) NEGATIVE (Negative) Independent Interpretation I performed an independent interpretation of an: EKG, Plain X-Ray (Normal) and CT Scan (No intracranial hemorrhage chronic right encephalomalacia) Interpretation: Rate: Rhythm: [place]: Normal P waves. Normal MEE. Normal QRS complex. ST T wave : qTC: prior studies: The study has been interpreted contemporaneously by me. . Radiology Impression Discussion of test interpretation with radiology: I have reviewed the radiologist's reading. Independent Historian Clinical information obtained from an independent historian. History obtained from or confirmed by: EMS External Record Review External record reviewed: Inpatient record and Outpatient record Discharge Plan Discharge Clinical Impression: Tachycardia, Chronic hypertension Patient Disposition: Home, Self-Care Instructions: Chronic Hypertension (ED), Tachycardia (ED) Additional Instructions: At this time your labs were reassuring, your INR is 2.2 Your EKG and test for ischemia to the heart were all normal and reassuring Please take your nighttime metoprolol and Lasix as prescribed Please follow-up with your doctor return for any worsening symptoms or concerns Your CT scan of the head did not show any bleeding or new findings Prescriptions: No Action metoprolol tartrate 25 mg tablet See Rx Instructions PO DAILY 90 Days Qty: 270 2RF Rx Instructions: 2 tabs qam, 1 tab qhs orally daily; warfarin 2 mg tablet 2 - 4 mg PO DAILY Ebglyss Pen 250 mg/2 mL pen injector subcut ondansetron HCl 4 mg tablet 4 mg PO Q8H PRN (Reason: nausea/vomiting) midodrine 5 mg tablet 5 mg PO TID hydroxyzine pamoate 50 mg capsule 50 mg PO TID (DME) FreeStyle Lite Strips Strip See Rx Instructions .ROUTE DAILY Qty: 10 Rx Instructions: As directed (DME) blood-glucose meter [FreeStyle Lite Meter] Kit See Rx Instructions .ROUTE .MEDSUPPLY Qty: 1 Rx Instructions: As directed tacrolimus 0.1 % ointment 1 appl topical BID mirtazapine 45 mg tablet 45 mg PO BEDTIME montelukast 10 mg tablet 10 mg PO DAILY cholecalciferol (vitamin D3) 125 mcg (5,000 unit) capsule 125 mcg PO DAILY loratadine 10 mg tablet 10 mg PO DAILY levetiracetam 1,000 mg tablet 1,000 mg PO BID naloxone 4 mg/actuation spray,non-aerosol intranasal melatonin 10 mg capsule 10 mg PO BEDTIME PRN (Reason: insomnia) 90 Days Qty: 90 2RF pregabalin 50 mg capsule 50 mg PO TID Qty: 90 5RF pantoprazole 40 mg tablet,delayed release (DR/EC) 40 mg PO DAILY 90 Days Qty: 90 3RF thiamine HCl (vitamin B1) 100 mg capsule 100 mg PO DAILY Qty: 90 2RF Print Language: Cypriot
[2025-05-17 15:02] LABS: MANUAL DIFF FLAG NO
[2025-05-17 15:08] LABS: Hematocrit 37.3 % (37.0-47.0); Hemoglobin 12.3 g/dl (12.0-16.0); Imm Gran Abs Auto 0.07 X10*3/uL (0.00-0.03); Imm Gran Pct Auto 0.4 % (0.0-0.4); Lymphocytes Absolute Auto 2.8 X10*3/uL (1.2-4.9); Mean Corpuscular HGB Conc 33.0 g/dl (31.0-35.0); Mean Corpuscular Hemoglobin 26.1 pg (27.0-33.0); Mean Corpuscular Volume 79.0 fL (80.0-98.0); NRBC Abs Auto 0.000 X10*3/uL (0.0-0.012); NRBC Pct Auto 0.0 /100WBC (0.0-0.2); Platelet Count 337 X10*3/uL (160-400); Red Blood Count 4.72 X10*6/uL (4.20-5.50); White Blood Count 16.2 X10*3/uL (4.8-10.8)
[2025-05-17] MEDS: oxyCODONE HCl Immed Release 5 MG TABLET 10 MG PO (15:18)
[2025-05-17 15:19] VITALS: BP 166/108; PULSE 100
[2025-05-17 15:20] LABS: INTERNATIONAL NORM RATIO 2.2 (0.9-1.1); Prothrombin Time 26.7 SEC (11.2-13.5)
--- NOTE | 2025-05-17 15:20 | PC.NURSE ---
pt medicated for pain and bp
[2025-05-17 15:26] LABS: Alanine Aminotransferase 25 U/L (0-31); Albumin Level 4.0 g/dL (3.5-5.0); Alkaline Phosphatase 144 U/L (39-117); Anion Gap 12 (12-20); Aspartate Amino Transferase 25 U/L (5-31); Blood Urea Nitrogen 17 mg/dL (9-16); Calcium 9.5 mg/dL (8.4-10.2); Carbon Dioxide 28 mmol/L (22-29); Chloride 102 mmol/L (96-108); Creatinine Clr Calc Pharmacy 59.3; Estimated Glomerular Filt Rate 51; Magnesium 2.2 mg/dL (1.6-2.6); Potassium 3.7 mmol/L (3.3-5.1); Sodium 138 mmol/L (135-145); Total Protein 7.4 g/dL (6.5-8.0)
[2025-05-17 15:38] LABS: Troponin-I High Sensitivity < 2.7 ng/L (<3.5-17.0)
[2025-05-17 15:38] LABS: NT Pro B Type Natriuretic Pept 417.2 pg/mL (<300)
[2025-05-17 15:52] LABS: Resp Syncy Virus RNA Qual PCR NEGATIVE (Negative); SARS COV2 PCR INHOUSE NEGATIVE (Negative)
[2025-05-17 16:04] VITALS: BP 126/84; PULSE 85; RESP 16; TEMP 36.8; O2SAT 100
[2025-05-17 16:11] VITALS: BP 126/84
[2025-05-17 17:16] VITALS: BP 126/84; PULSE 85; RESP 16; TEMP 36.8; O2SAT 100
== END 2025-05-17 17:18 | disposition home or self-care (01) ==
PROVIDERS: Physician Assistant Medical; Emergency Provider Emergency Medicine; PCP Internal Medicine
DX: R00.0 Tachycardia, unspecified (principal); I10 Essential (primary) hypertension; R42 Dizziness and giddiness; R07.9 Chest pain, unspecified; R06.02 Shortness of breath; I49.3 Ventricular premature depolarization; R51.9 Headache, unspecified; Z03.818 Encounter for observation for suspected exposure to other biological agents ruled out; E11.9 Type 2 diabetes mellitus without complications; Z79.01 Long term (current) use of anticoagulants
CPT/HCPCS: 36415; 70450; 71045; 80053; 80061; 82306; 82607; 83036; 83735; 83880; 84484; 85025; 85610; 87637; 93005; 99284; 99285

== ENCOUNTER → 2025-05-17 13:39 | Outpatient (BNV) | payer OTHER, SELFPAY | PROVIDERS: Emergency Provider Emergency Medicine; PCP Internal Medicine; Visit Provider Internal Medicine Cardiovascular Disease | DX: I49.3 Ventricular premature depolarization (principal) | CPT/HCPCS: 93010 ==

== ENCOUNTER → 2025-05-17 14:50 | Outpatient (BNV) | payer OTHER, SELFPAY | PROVIDERS: Emergency Provider Emergency Medicine; PCP Internal Medicine; Visit Provider Radiology Diagnostic Radiology | DX: R51.9 Headache, unspecified (principal); R07.9 Chest pain, unspecified | CPT/HCPCS: 70450; 71045 ==

== ENCOUNTER 2025-05-25 08:49 | Emergency (ER) | payer OTHER, SELFPAY ==
--- NOTE | ~2025-05-25 | XR_ITS ---
EXAMINATION: XR CHEST CLINICAL INFORMATION: fatigue and weakness COMPARISON: 03/17/2025 TECHNIQUE: Frontal view of the chest was obtained. FINDINGS: Lung volumes are decreased compared to the prior. There are coarse reticular markings in the left lung, increased. There are streaky and reticular markings in the mid third right lung, slightly increased since the prior. Cardiac size is within normal limits. There is no pneumothorax. No pleural effusion is evident. XR/XR chest 1V IMPRESSION: Increasing coarse lung markings could be related to technique and/or decreasing lung volumes. Developing pneumonia is not ruled out. Electronically signed by: Wellington Mcmanus MD 05/25/2025 10:39 AM EST
--- NOTE | ~2025-05-25 | CT_ITS ---
EXAMINATION: CT HEAD WITHOUT CONTRAST CLINICAL INFORMATION: Headache, on blood thinners COMPARISON: 03/17/2025 TECHNIQUE: Contiguous axial imaging was performed from the skull base to vertex without intravenous administration of contrast. This CT examination was performed using dose optimization techniques as appropriate, variously including the following: *Automated exposure control *Adjustment of mA and/or kV according to patient size (this includes techniques or standardized protocols for targeted exams where dose is matched to indication/reason for exam; i.e. extremities or head) *Use of iterative reconstruction technique FINDINGS: Again seen is a encephalization the right frontal and left parietal occipital region, unchanged. There is no acute ischemic change. There is no intracranial hemorrhage. There is no mass-effect or midline shift. Basal cisterns and ventricles are within normal limits for age/cerebral volume. Orbits are symmetrical and unremarkable. Small polyp or mucous changes cyst is again noted in the floor the right maxillary sinus. There are no bony abnormalities. CT/CT head/brain wo IV con IMPRESSION: No acute intracranial abnormality. Stable chronic changes. Electronically signed by: Wellington Mcmanus MD 05/25/2025 10:44 AM EST
--- NOTE | 2025-05-25 09:00 | ED.WEAKNESS ---
HPI - Weakness General Chief complaint: Seizure Stated complaint: TREMULOUS,HX OF SEIZURES PER EMS Time Seen by Provider: 05/25/25 08:55 Source: patient, EMS and old records reviewed Mode of arrival: EMS Limitations: no limitations History of Present Illness ED Provider: JEANNIE HO Narrative: 45-year-old female with past medical history of diabetes, seizures compliant with Keppra, chronic respiratory failure on 2 L nasal cannula oxygen, interstitial lung disease, pulmonary embolus on warfarin, DRESS syndrome here with c/o waking up in her bed and feeling shaky and off. She denies any tongue injury or urinary incontinence but she does feel like she possibly had a seizure. She states she has a mild headache as well. She is slow to respond but alert and oriented on arrival. She states she has no precipitating event she knows and has not had a seizure in 5 months. She states she feels like she did sees MD Complaint: generalized weakness Onset (ago): minute(s) (Upon waking) Duration: constant Location: generalized Migration: none Severity: mild Relieving factors: none Exacerbating factors: none Context: other Associated symptoms: denies other symptoms Related Data Home Medications ?Medication ?Instructions ?Recorded ?Confirmed blood sugar diagnostic (FreeStyle #10 ea 05/14/25 05/14/25 Lite Strips) blood-glucose meter (FreeStyle #1 ea 05/14/25 05/14/25 Lite Meter kit) cholecalciferol (vitamin D3) 125 125 mcg PO DAILY 05/14/25 05/14/25 mcg (5,000 unit) capsule hydroxyzine pamoate 50 mg capsule 50 mg PO TID 05/14/25 05/14/25 lebrikizumab-lbkz 250 mg/2 mL mg subcut 05/14/25 05/14/25 subcutaneous pen injector (Ebglyss Pen) loratadine 10 mg tablet 10 mg PO DAILY 05/14/25 05/14/25 midodrine 5 mg tablet 5 mg PO TID 05/14/25 05/14/25 mirtazapine 45 mg tablet 45 mg PO BEDTIME 05/14/25 05/14/25 montelukast 10 mg tablet 10 mg PO DAILY 05/14/25 05/14/25 naloxone 4 mg/actuation nasal spray intranasal 05/14/25 05/14/25 ondansetron HCl 4 mg tablet 4 mg PO Q8H PRN nausea/vomiting 05/14/25 05/14/25 tacrolimus 0.1 % topical ointment 1 appl topical BID 05/14/25 05/14/25 warfarin 2 mg tablet 2 - 4 mg PO DAILY 05/14/25 05/14/25 levetiracetam 1,000 mg tablet 1,500 mg PO BID 05/21/25 Previous Rx's ?Medication ?Instructions ?Recorded melatonin 10 mg capsule 10 mg PO BEDTIME PRN insomnia 90 05/14/25 days #90 caps pantoprazole 40 mg tablet,delayed 40 mg PO DAILY 90 days #90 tabs 05/14/25 release pregabalin 50 mg capsule 50 mg PO TID #90 caps 05/14/25 thiamine HCl (vitamin B1) 100 mg 100 mg PO DAILY #90 caps 05/14/25 capsule metoprolol tartrate 25 mg tablet See Rx Instructions PO DAILY 90 05/17/25 days #270 tabs Allergies Allergy/AdvReac Type Severity Reaction Status Date / Time ciprofloxacin Allergy Intermediate hives, Verified 05/25/25 09:06 internal burning epinephrine (From Epi E-Z Allergy Intermediate hives, Verified 05/25/25 09:06 Pen) internal burning ertapenem Allergy Intermediate hives, Verified 05/25/25 09:06 internal burning ibuprofen (From Motrin) Allergy Intermediate hives, Verified 05/25/25 09:06 internal burning iodine Allergy Intermediate hives, Verified 05/25/25 09:06 internal burning iohexol (From Omnipaque) Allergy Intermediate hives, Verified 05/25/25 09:06 internal burning methylprednisolone (From Allergy Intermediate hives, Verified 05/25/25 09:06 Medrol) internal burning naproxen Allergy Intermediate hives, Verified 05/25/25 09:06 internal burning Penicillins Allergy Intermediate hives, Verified 05/25/25 09:06 internal burning vancomycin Allergy Intermediate hives, Verified 05/25/25 09:06 internal burning Review of Systems Review of Systems: Yes all other systems are reviewed and are negative PMFSH Past Medical History Attestation statement: The following information was validated with the patient. Source: old records reviewed Medical History Leukocytosis Pulmonary embolism History of coma Chronic respiratory failure Interstitial lung disease DRESS syndrome Diabetes mellitus type 2 in obese Seizures Tachycardia Social History Social History Housing: Apartment Patient Tobacco Use Status: Former Tobacco user Years Smoked: occasionally for 2 years Smoked in Last 30 Days: No e-Cigarette/Vaping Use: Never Used Use of substances other than those prescribed or required for medical reasons: No Advance Directives: No Advance Directives Information Provided: Yes Do you have a plan to hurt others: No Plan Patient : No Current occupational status: unemployed Physical Exam Vital Signs: Vital Signs: Last Vital Signs Temp 97.6 F 05/25/25 09:08 Pulse 81 05/25/25 09:08 Resp 21 H 05/25/25 09:08 BP 102/52 L 05/25/25 09:08 Pulse Ox 93 05/25/25 09:08 O2 Del Method Room Air 05/25/25 09:08 BMI result Body Mass Index 39.9 Appearance: Alert. Oriented X3. No acute distress. Slow to respond Eyes: Pupils equal, round and reactive to light. ENT: Pharynx normal. Atraumatic Neck: Normal inspection. Neck supple. CVS: Normal heart rate and rhythm. Pulses normal. Respiratory: No respiratory distress. Breath sounds normal. Abdomen: Soft and nontender. Skin: Skin warm and dry. Normal skin color. Normal skin turgor. Extremities: No lower extremity edema. No calf ttp Neuro: Oriented X 3. No motor deficit. No sensory deficit. CN2-12 intact Medical Decision Making Medical Decision Making MDM Narrative: 45-year-old female with past medical history of diabetes, seizures, chronic respiratory failure on 2 L nasal cannula oxygen, interstitial lung disease, pulmonary embolus on warfarin, DRESS syndrome here with c/o feeling off, shaky, not herself upon waking this morning. She had no trauma, no precipitating infectious event. She is GCS 15 on arrival though is slow to respond. She does complain of a mild headache at this time I am going to obtain basic labs, EKG, urine, CT head to RO intracranial hemorrhage. She will be observed and if she returns to baseline we will be DC to her neurologist for outpatient follow-up Differential Diagnosis Differential Diagnoses: The differential diagnosis associated with the presentation includes Seizure, electrolyte abnormality, intracranial hemorrhage, sleep disorder, anxiety Admission/Observation Consideration of admission/observation: Escalation of care including admission/observation considered 11:46 AM 05/25/2025 (JEANNIE STOUT): She is alert and oriented at baseline, she does not want to stay any longer does not want to give a urine sample. She states her 21-year-old adult child is going to be home and stay with her all day. She is going to follow up with her neurologist I offered to continue to observe her but she declines and wants to go home Lab Data MDM Lab Attestation statement: I reviewed the patient's lab results. 05/25/25 09:23 05/25/25 09:23 Labs: Lab Results 05/25/25 05/25/25 Range/Units 09:23 10:05 WBC 8.9 (4.8-10.8) X10*3/uL RBC 4.50 (4.20-5.50) X10*6/uL Hgb 11.6 L (12.0-16.0) g/dl Hct 36.4 L (37.0-47.0) % MCV 80.9 (80.0-98.0) fL MCH 25.8 L (27.0-33.0) pg MCHC 31.9 (31.0-35.0) g/dl RDW 15.9 (11.0-16.0) % Plt Count 299 (160-400) X10*3/uL MPV 8.8 L (9.4-12.3) fL Immature Gran % (Auto) 0.6 H (0.0-0.4) % Neut % (Auto) 64.7 (45-73) % Lymph % (Auto) 22.7 (20-40) % [place] % (Auto) 7.5 (2-11) % Eos % (Auto) 3.7 (0-4) % Baso % (Auto) 0.8 (0-2) % Lymph # (Auto) 2.0 (1.2-4.9) X10*3/uL [place] # (Auto) 0.7 (0.1-1.2) X10*3/uL Eos # (Auto) 0.3 (0.0-0.4) X10*3/uL Baso # (Auto) 0.1 (0.0-0.2) X10*3/uL Abs Immat Gran (auto) 0.05 H (0.00-0.03) X10*3/uL Absolute Neuts (auto) 5.7 (2.0-8.3) x10*3/uL Absolute Nucleated RBC 0.000 (0.0-0.012) X10*3/uL Nucleated RBC % (auto) 0.0 (0.0-0.2) /100WBC VBG pH 7.39 (7.32-7.43) VBG pCO2 56 mmHg VBG pO2 51 mmHg VBG HCO3 35 H (22-26) mmol/L VBG O2 Saturation 81.0 % VBG Base Excess 8.5 mmol/L Sodium 138 (135-145) mmol/L Potassium 4.0 (3.3-5.1) mmol/L Chloride 102 (96-108) mmol/L Carbon Dioxide 32 H (22-29) mmol/L Anion Gap 8 L (12-20) BUN 12 (9-16) mg/dL Creatinine 1.14 (0.5-1.4) mg/dL Estim Creat Clear Calc 61.4 Estimated GFR 52 Random Glucose 107 (60-115) mg/dL Calcium 9.0 (8.4-10.2) mg/dL Magnesium 2.0 (1.6-2.6) mg/dL Total Bilirubin 0.2 (0.0-1.0) mg/dL Direct Bilirubin < 0.2 (0.0-0.5) mg/dL AST 35 H (5-31) U/L ALT 37 H (0-31) U/L Alkaline Phosphatase 142 H (39-117) U/L C-Reactive Protein 2.83 H (< or = 0.50) mg/dL Total Protein 6.6 (6.5-8.0) g/dL Albumin 3.6 (3.5-5.0) g/dL Influenza Type A (PCR) NEGATIVE (Negative) Influenza Type B (PCR) NEGATIVE (Negative) RSV RNA Qual (PCR) NEGATIVE (Negative) SARS-CoV-2 RNA (RT-PCR) NEGATIVE (Negative) Independent Interpretation I performed an independent interpretation of an: EKG, Plain X-Ray (Normal) and CT Scan (Normal) Interpretation: Rate: 77 Rhythm: Normal sinus rhythm [place]: Left Normal P waves. Normal MEE. Normal QRS complex. ST T wave : Inverted T-wave in V1 and lead II but otherwise no ST elevation or acute ischemia qTC: 463 prior studies: No acute ischemia The study has been interpreted contemporaneously by me. . Radiology Impression Discussion of test interpretation with radiology: I have reviewed the radiologist's reading. Independent Historian Clinical information obtained from an independent historian. History obtained from or confirmed by: EMS External Record Review External record reviewed: Outpatient record and Prior outpatient labs Discharge Plan Discharge Clinical Impression: Epilepsy Qualifiers: Epilepsy type: unspecified Intractability: not intractable Status epilepticus: without status epilepticus Qualified Code(s): G40.909 - Epilepsy, unspecified, not intractable, without status epilepticus Patient Disposition: Home, Self-Care Instructions: Epilepsy (ED) Additional Instructions: At this time your labs are reassuring Your CT scan did not show any bleeding in the brain You were offered a urine sample but declined Please stay with a responsible adult for 24 hours Please follow up with your neurologist within the next week You may need medication changes Return at any time for any changes, worsening symptoms, or any other concern Prescriptions: No Action metoprolol tartrate 25 mg tablet See Rx Instructions PO DAILY 90 Days Qty: 270 2RF Rx Instructions: 2 tabs qam, 1 tab qhs orally daily; levetiracetam 1,000 mg tablet 1,500 mg PO BID warfarin 2 mg tablet 2 - 4 mg PO DAILY Ebglyss Pen 250 mg/2 mL pen injector subcut ondansetron HCl 4 mg tablet 4 mg PO Q8H PRN (Reason: nausea/vomiting) midodrine 5 mg tablet 5 mg PO TID hydroxyzine pamoate 50 mg capsule 50 mg PO TID (DME) FreeStyle Lite Strips Strip See Rx Instructions .ROUTE DAILY Qty: 10 Rx Instructions: As directed (DME) blood-glucose meter [FreeStyle Lite Meter] Kit See Rx Instructions .ROUTE .MEDSUPPLY Qty: 1 Rx Instructions: As directed tacrolimus 0.1 % ointment 1 appl topical BID mirtazapine 45 mg tablet 45 mg PO BEDTIME montelukast 10 mg tablet 10 mg PO DAILY cholecalciferol (vitamin D3) 125 mcg (5,000 unit) capsule 125 mcg PO DAILY loratadine 10 mg tablet 10 mg PO DAILY naloxone 4 mg/actuation spray,non-aerosol intranasal melatonin 10 mg capsule 10 mg PO BEDTIME PRN (Reason: insomnia) 90 Days Qty: 90 2RF pregabalin 50 mg capsule 50 mg PO TID Qty: 90 5RF pantoprazole 40 mg tablet,delayed release (DR/EC) 40 mg PO DAILY 90 Days Qty: 90 3RF thiamine HCl (vitamin B1) 100 mg capsule 100 mg PO DAILY Qty: 90 2RF Print Language: Cymro
--- NOTE | 2025-05-25 09:03 | ECG_ITS ---
Test Reason : weakness Blood Pressure : */* mmHG Vent. Rate : 77 BPM Atrial Rate : 77 BPM P-R Int : 162 ms QRS Dur : 82 ms QT Int : 410 ms P-R-T Axes : 45 4 -3 degrees QTcB Int : 463 ms Normal sinus rhythm Normal ECG When compared with ECG of 17-May-2025 13:39, Premature ventricular complexes are no longer Present Referred By: Yvette Perea Electronically Signed By: GWENDOLYN ROTHMAN
[2025-05-25 09:04] VITALS: BP 102/52; BP 108/60; PULSE 80; PULSE 81; RESP 21; TEMP 36.4; O2SAT 93; O2SAT 95; BMI 39.9
[2025-05-25 09:08] VITALS: BP 102/52; PULSE 81; RESP 21; TEMP 36.4; O2SAT 93
[2025-05-25 09:27] LABS: MANUAL DIFF FLAG NO
[2025-05-25 09:30] LABS: Hematocrit 36.4 % (37.0-47.0); Hemoglobin 11.6 g/dl (12.0-16.0); Imm Gran Abs Auto 0.05 X10*3/uL (0.00-0.03); Imm Gran Pct Auto 0.6 % (0.0-0.4); Lymphocytes Absolute Auto 2.0 X10*3/uL (1.2-4.9); Mean Corpuscular HGB Conc 31.9 g/dl (31.0-35.0); Mean Corpuscular Hemoglobin 25.8 pg (27.0-33.0); Mean Corpuscular Volume 80.9 fL (80.0-98.0); NRBC Abs Auto 0.000 X10*3/uL (0.0-0.012); NRBC Pct Auto 0.0 /100WBC (0.0-0.2); Platelet Count 299 X10*3/uL (160-400); Red Blood Count 4.50 X10*6/uL (4.20-5.50); White Blood Count 8.9 X10*3/uL (4.8-10.8)
[2025-05-25 09:44] LABS: Alanine Aminotransferase 37 U/L (0-31); Albumin Level 3.6 g/dL (3.5-5.0); Alkaline Phosphatase 142 U/L (39-117); Anion Gap 8 (12-20); Aspartate Amino Transferase 35 U/L (5-31); Blood Urea Nitrogen 12 mg/dL (9-16); Calcium 9.0 mg/dL (8.4-10.2); Carbon Dioxide 32 mmol/L (22-29); Chloride 102 mmol/L (96-108); Creatinine Clr Calc Pharmacy 61.4; Estimated Glomerular Filt Rate 52; Magnesium 2.0 mg/dL (1.6-2.6); Potassium 4.0 mmol/L (3.3-5.1); Sodium 138 mmol/L (135-145); Total Protein 6.6 g/dL (6.5-8.0)
[2025-05-25 10:04] LABS: Resp Syncy Virus RNA Qual PCR NEGATIVE (Negative); SARS COV2 PCR INHOUSE NEGATIVE (Negative)
[2025-05-25 10:08] LABS: VBG HCO3 35 mmol/L (22-26); VBG O2 % Saturation 81.0 %
[2025-05-25 10:09] LABS: Venous Blood Gas Refer to POC result
[2025-05-25 12:19] VITALS: BP 109/65; PULSE 79; RESP 17; TEMP -17.7; TEMP 0; O2SAT 95
== END 2025-05-25 12:20 | disposition home or self-care (01) ==
PROVIDERS: Emergency Provider Emergency Medicine
DX: G40.909 Epilepsy, unspecified, not intractable, without status epilepticus (principal); J96.10 Chronic respiratory failure, unspecified whether with hypoxia or hypercapnia; Z86.711 Personal history of pulmonary embolism; Z79.01 Long term (current) use of anticoagulants; Z79.899 Other long term (current) drug therapy; Z99.81 Dependence on supplemental oxygen; Z03.818 Encounter for observation for suspected exposure to other biological agents ruled out; Z88.0 Allergy status to penicillin; Z88.1 Allergy status to other antibiotic agents; Z88.6 Allergy status to analgesic agent; Z88.8 Allergy status to other drugs, medicaments and biological substances; Z91.041 Radiographic dye allergy status
CPT/HCPCS: 36415; 70450; 71045; 80048; 80076; 82803; 83735; 85025; 86140; 87637; 93005; 99284; 99285

== ENCOUNTER → 2025-05-25 09:03 | Outpatient (BNV) | payer OTHER, SELFPAY | PROVIDERS: Emergency Provider Emergency Medicine; Visit Provider Internal Medicine | DX: R53.1 Weakness (principal) | CPT/HCPCS: 93010 ==

== ENCOUNTER → 2025-05-25 09:03 | Outpatient (BNV) | payer OTHER, SELFPAY | PROVIDERS: Emergency Provider Emergency Medicine; Visit Provider Radiology Diagnostic Radiology | DX: R51.9 Headache, unspecified (principal); R53.1 Weakness; R53.83 Other fatigue | CPT/HCPCS: 70450; 71045 ==

== ENCOUNTER 2025-06-23 10:36 | Outpatient (AMB) | payer OTHER, SELFPAY ==
--- NOTE | 2025-06-23 10:44 | A.OFFPC_ITS ---
Vital Signs 06/23/25 10:45 Height 4 ft 11 in Weight 194 lb BMI 39.2 BP 102/60 Blood Pressure Location Rt brachial Position Sitting Respiration 16 Pulse 77 Pulse Source Pulse Oximeter Temp 96.9 F Temp Source Temporal Artery Scan Pulse Oximetry (%) 96 Oxygen Delivery Method Room Air Intake Visit Reasons: diabetes Medical Coding Auditor Required: No Accompanied by: Self / Same As Patient Allergies ciprofloxacin Allergy (Intermediate, Verified 06/23/25 10:45) hives, internal burning epinephrine (From Epi E-Z Pen) Allergy (Intermediate, Verified 06/23/25 10:45) hives, internal burning ertapenem Allergy (Intermediate, Verified 06/23/25 10:45) hives, internal burning ibuprofen (From Motrin) Allergy (Intermediate, Verified 06/23/25 10:45) hives, internal burning iodine Allergy (Intermediate, Verified 06/23/25 10:45) hives, internal burning iohexol (From Omnipaque) Allergy (Intermediate, Verified 06/23/25 10:45) hives, internal burning methylprednisolone (From Medrol) Allergy (Intermediate, Verified 06/23/25 10:45) hives, internal burning naproxen Allergy (Intermediate, Verified 06/23/25 10:45) hives, internal burning Penicillins Allergy (Intermediate, Verified 06/23/25 10:45) hives, internal burning vancomycin Allergy (Intermediate, Verified 06/23/25 10:45) hives, internal burning Medication List - Last Reconciled 06/23/25 by Nita Carr MD blood sugar diagnostic (FreeStyle Lite Strips) As directed blood-glucose meter (FreeStyle Lite Meter kit) As directed cholecalciferol (vitamin D3) 125 mcg PO DAILY lwgnooivoac-umbznbfqi-gbhfnmjy 200-62.5-25 mcg (Trelegy Ellipta) 1 ea inhalation DAILY hydroxyzine pamoate 50 mg PO TID ipratropium-albuterol 0.5 mg-3 mg(2.5 mg base)/3 mL mL inhalation lebrikizumab-lbkz (Ebglyss Pen) mg subcut levetiracetam 1,750 mg PO loratadine 10 mg PO DAILY melatonin 10 mg PO BEDTIME PRN 90 days metoprolol tartrate 2 tabs qam, 1 tab qhs orally daily; 90 days midodrine 5 mg PO TID mirtazapine 45 mg PO BEDTIME montelukast 10 mg PO DAILY naloxone 4 mg/actuation intranasal ondansetron HCl 4 mg PO Q8H PRN pantoprazole 40 mg PO DAILY 90 days pregabalin 50 mg PO TID tacrolimus 0.1% 1 appl topical BID thiamine HCl (vitamin B1) 100 mg PO DAILY warfarin 2 - 4 mg PO DAILY Tobacco use date assessed: 05/14/25 Dental Screening Dental Screen Date: 05/14/25 HPI HPI Comments History of Present Illness Details The patient is a 45 year old female presenting for a follow-up for management of multiple chronic conditions and medication reconciliation. Type 2 Diabetes Mellitus/Obesity: The patient has a history of diabetes, for which she was taking mounjaro. However, medication was discontinued by another provider that she saw prior to reestablishing care. Reports a recent fasting blood glucose reading of 194 at home. She also reports episodes of shakiness, suggesting symptomatic hypoglycemia. Seizure Disorder: The patient has a history of seizures and was hospitalized at [facility] in late May for three days after an overnight EEG confirmed seizure activity. Due to breakthrough seizures her dosage was increased to 1750mg. She follows with neurology under Dr. Alonso at [facility]. Sleep Apnea: The patient was diagnosed with sleep apnea via a home study and had been using a CPAP machine, with which she felt good except for some issues with mask options. She has since experienced trouble sleeping, waking up screaming and gasping for air since her supplier did not receive reauthorization order since there were issues with the CPAP mask fit prior to discontinuation. Chronic Hypoxic Respiratory Failure: The patient requires supplemental oxygen at 5 liters. She reports episodes of coughing and feeling unable to breathe, which are relieved by using a large oxygen tank. Pt also notes that she has not been using her trelegy inhaler because it was discontinued by another provider who was not her high school music teacher. She has a follow-up appointment with her high school music teacher tomorrow. Chronic Pain & Impaired Mobility: The patient experiences severe, grinding pain in her hips, which causes her to cry every morning. Pregabalin 50 mg three times a day has not been effective, and a heating blanket provides only occasional relief. Her mobility is significantly impaired; she has difficulty getting up from a seated position, cannot stand completely, and requires assistance from her mother to get out of the bathroom. She has had recent falls and uses a walker. Chronic Anticoagulation/Pulmonary Embolism: The patient is on warfarin therapy, with her INR fluctuating. Her dose was recently increased from 2 mg to 3 mg for the last two weeks due to a low reading, and she is scheduled for follow-up blood work with [facility] coumadin clinic. [facility] Medical History (Updated 06/23/25 @ 17:46 by Nita Carr MD) BING (obstructive sleep apnea) Leukocytosis Pulmonary embolism History of coma Chronic respiratory failure Interstitial lung disease DRESS syndrome Diabetes mellitus type 2 in obese Seizures Tachycardia Social History Housing: Apartment Patient Tobacco Use Status: Former Tobacco user Years Smoked: occasionally for 2 years e-Cigarette/Vaping Use: Never Used Current occupational status: unemployed Questionnaire Thrive Questionnaire Date Thrive assessed: 05/14/25 AUDIT C Alcohol Use Questionnaire (AUDIT-C) 1. How often do you have a drink containing alcohol?: Never 3. How often do you have six or more drinks on one occasion?: Never Total Score: 0 FRED-7 AMB Questionnaire FRED-7 Date FRED - 7 assessed: 05/14/25 Source: Developed by Drs. William Ibarra, Anel Puentes, Vu Hall and colleagues, with an educational elisabeth from [email or web address]. Review of Systems Narrative Review of Systems - General: Reports episodes of generalized shaking and trouble sleeping. - Respiratory: Reports episodes of gasping for air that wake her from sleep, and coughing fits that improve with supplemental oxygen. - Musculoskeletal: Reports severe, pain in her hips. - Reports ambulatory dysfunction with difficulty moving her left leg and requiring assistance to stand. - Neurological: Reports a history of seizures. Physical exam (Primary Care) Vital Signs: Last Vital Signs Temp 96.9 F 06/23/25 10:45 Pulse 77 06/23/25 10:45 Resp 16 06/23/25 10:45 BP 102/60 06/23/25 10:45 Pulse Ox 96 06/23/25 10:45 Oxygen Delivery Method Room Air 06/23/25 10:45 BMI result Body Mass Index 39.2 Tobacco/Smoking Status: Tobacco use Status Tobacco use date assessed 05/14/25 06/23/25 11:00 Patient Tobacco Use Status Former Tobacco user 06/23/25 11:00 e-Cigarette/Vaping Use Never Used 06/23/25 11:00 Thrive Assessment: Date of Thrive Assessment Date Thrive assessed 05/14/25 06/23/25 11:00 Narrative Physical Exam - Pulmonary: Lungs are clear to auscultation bilaterally, no wheezing. - Cardiovascular: Normal rate and rhythm with a soft murmur noted. - Abdomen: SNTND, +BS Coding Level of Care Code Est Pt Level 5 (66643) Add On Problem Visit Only Diagnoses BING (obstructive sleep apnea) G47.33 Pulmonary embolism, unspecified chronicity, unspecified pulmonary embolism type, unspecified whether acute cor pulmonale present I26.99 Pulmonary embolism type: unspecified Chronicity: unspecified Acute cor pulmonale presence: unspecified Chronic respiratory failure with hypoxia J96.11 Respiratory failure complication: hypoxia Diabetes mellitus type 2 in obese E11.69; E66.9 Time Spent (min) 48 Comment visit time, chart review, document prep, care coordination Assessment & Plan Assessment & Plan (1) BING (obstructive sleep apnea): Code(s): G47.33 - Obstructive sleep apnea (adult) (pediatric) Category: Medical (2) Pulmonary embolism: Code(s): I26.99 - Other pulmonary embolism without acute cor pulmonale Category: Medical Qualifiers: Pulmonary embolism type: unspecified Chronicity: unspecified Acute cor pulmonale presence: unspecified Qualified Code(s): I26.99 - Other pulmonary embolism without acute cor pulmonale (3) Chronic respiratory failure: Code(s): J96.10 - Chronic respiratory failure, unspecified whether with hypoxia or hypercapnia Category: Medical Qualifiers: Respiratory failure complication: hypoxia Qualified Code(s): J96.11 - Chronic respiratory failure with hypoxia (4) Diabetes mellitus type 2 in obese: Code(s): E11.69 - Type 2 diabetes mellitus with other specified complication; E66.9 - Obesity, unspecified Category: Medical Plan Assessment and Plan 1. Type 2 Diabetes Mellitus with Hypoglycemia - Will repeat HbA1c today - Prescribed chewable glucose tablets for management of hypoglycemic symptoms with instructions to take one tablet and re-check in 15 minutes. 2. Sleep Apnea - Patient was diagnosed via home study and was using CPAP - She now reports significant sleep disturbances, including waking up gasping for air since not using machine. - Patient advised to discuss these symptoms, the discontinuation of her CPAP, and issues with her inhalers with her high school music teacher tomorrow. - Will request a copy of the sleep study. - If she encounters delays with the pulmonology-based sleep clinic, a referral will be placed for her to be seen at [facility] sooner. 3. Seizure Disorder - Patient has a history of breakthrough seizures, which prompted an increase in her Keppra dose to 1750mg after her recent hospitalization. - Continue current Keppra dosage. 4. Chronic Hip Pain and Impaired Mobility - The patient reports severe, debilitating hip pain and significant functional decline, including falls and needing assistance with basic mobility. - A referral for home physical therapy with [facility] will be placed since pt reports ongoing nursing support from them(states nurse Luci communicates with her frequently) 5. Chronic Anticoagulation/Pulmonary Embolism - Patient on warfarin with a recent dose increase to 3mg due to a low INR. - Patient to proceed with scheduled lab work to check INR today. 7. Follow-up - Plan for a follow-up visit in one month. Plan - Labs: Ordered a repeat HbA1c to be drawn today - Prescribed chewable glucose tablets for symptomatic hypoglycemia. - Referrals: Placed a referral for home physical therapy with [facility] to address chronic hip pain and impaired mobility. - Specialist Coordination: Advised patient to discuss worsening sleep, gasping for air, and discontinuation of her CPAP and Trelegy with her high school music teacher tomorrow. - Will request a copy of her sleep study records. - If pulmonology is unable to provide timely sleep medicine follow-up, a referral will be placed to our clinic. - Follow-up: Scheduled a follow-up appointment in one month. Patient Instructions - It is very important that you talk to your lung doctor tomorrow about your trouble sleeping and episodes of gasping for air. - Let your lung doctor know about your issues with your CPAP machine and Trelegy inhaler - If you start to feel shaky, as if your blood sugar is low, chew one of the glucose tablets we prescribed. - Wait 15 minutes, and if you do not feel better, you may chew another one. - We are putting in a referral for a physical therapist to come to your home to help with your hip pain and difficulty walking. - Please bring all of your medication bottles with you to your next appointment. Orders: Orders Hemoglobin A1c Today D72.12 - Drug rash with eosinophilia and systemic symptoms syndrome, E11.69 - Type 2 diabetes mellitus with other specified complication, E66.9 - Obesity, unspecified, R56.9 - Unspecified convulsions, T50.905A - Adverse effect of unspecified drugs, medicaments and biological substances, initial encounter TSH reflex Free T4 Today D72.12 - Drug rash with eosinophilia and systemic sym ptoms syndrome, E11.69 - Type 2 diabetes mellitus with other specified complication, E66.9 - Obesity, unspecified, R56.9 - Unspecified convulsions, T50.905A - Adverse effect of unspecified drugs, medicaments and biological substances, initial encounter Magnesium Today D72.12 - Drug rash with eosinophilia and systemic symptoms syndrome, E11.69 - Type 2 diabetes mellitus with other specified complication, E66.9 - Obesity, unspecified, R56.9 - Unspecified convulsions, T50.905A - Adverse effect of unspecified drugs, medicaments and biological substances, initial encounter Medications: New mirtazapine 45 mg PO BEDTIME 90 tabs 3RF levetiracetam 1,750 mg PO glucose (Dex4 Glucose) until symptoms of low blood sugar are controlled 4 grams PO Q15M PRN 30 tabs 5RF hypoglycemia Refilled thiamine HCl (vitamin B1) 100 mg PO DAILY 90 caps 2RF
[2025-06-23 10:45] VITALS: BP 102/60; PULSE 77; RESP 16; TEMP 36.1; O2SAT 96; BMI 39.2
--- OUTSIDE RECORDS SUMMARY | 2025-06-23 13:25 | XMS_ITS | Clinical Summary ---
Author Organization [facility] [place] [address] Care Team Providers Care Translator Name Role Phone Nita Carr MD Primary Care Provider [phone] Social History Tobacco Use Types Packs/Day Years [...] Depression Screening 07/08/2024 COVID-19 Vaccine ( - 2024-2 6 season) 2025 Influenza Vaccine (#1) 2025 RSV [...] Documents on File Type Date Recorded Patient Textile Machine Mechanic Expl anation Health Care Decision (hx) 08/02/2023 AD DAMON DIRECTIVE Health Care Decision (hx) 07/10/2023 HE ALTH CARE PROXY Care Teams Translator Relationship Specialty Start Date End Date Nita Carr MD [address] [place] [id number] PCP - General 10/31/17
--- OUTSIDE RECORDS SUMMARY | 2025-06-23 13:25 | XMS_ITS | Encounter Summary ---
Author Organization [facility] Address [address] [place] [address] Phone Care Team Providers Care Studio Operator Name Role Phone Nita Carr MD Primary Care Provider + Reason for Referral * Consultation (Within 1 month) - New Request Specialty Diagnoses / Procedures Referred By Bolivar murdock Referred To Contact Allergy and Immunology Olivia Meier MD [address] [place] [address] Phone: tel: fax: [address] [address] Phone: tel: Referral ID Status Reason Start Date Expiration Date V isits Requested Visits Authorized [id number] New Request 01/05/2025 01/05/2026 1 1 Encounter Details Date Type Department Care Team (Late st Contact Info) Description 01/05/2025 Transcribe Orders [facility] Referral Management [address] [place] [address] Olivia Meier MD [address] [place] [address] Social History Tobacco Use Types Packs/Day Years [...] Associated Diagnoses Order Schedule Ambulatory referral to [facility] Allergy Outpatient Referral Routine Ordered: 01/05/2025 documented as of this encounter Visit Diagnoses Not on filedocumented in this encounter Care Teams Studio Operator Relationship Specialty Start Date End Date Nita Carr MD PCP - General Internal Medicine 04/01/23 documented as of this encounter Additional Source Comments The information contained in this document represents components of the legal health record. It is not the complete legal health record.[facility]
--- OUTSIDE RECORDS SUMMARY | 2025-06-23 13:25 | XMS_ITS | Clinical Summary ---
Author Organization [facility] Address [address] [place] [address] Phone Care Team Providers Care Casket Coverer Name Role Phone Nita Carr MD Primary [...] file Insurance MEDICARE PART A & [place] [address] [place] [address] MEDICARE REPLACEMENT MEDICARE PART A & B CARE MEDICARE REPLACEMENT MEDICARE PART A & B [facility] CARE MEDICARE REPLACEMENT MEDICARE PART A & B [facility] ONE CARE MEDICARE REPLACEMENT MEDICARE PART A & B [facility] ONE CARE MEDICARE REPLACEMENT MEDICARE PART A & B Care Teams Casket Coverer Relationship Specialty Start Date End Date Nita Carr MD PCP - General Internal Medicine 04/01/23 Additional Source Comments The information contained in this document represents components of the legal health record. It is not the complete legal health record.[facility]
== END 2025-06-23 12:02 | disposition home or self-care (01) ==
LOC: HO.HMCHD 10:38
PROVIDERS: PCP Internal Medicine; Visit Provider Internal Medicine
DX: I26.99 Other pulmonary embolism without acute cor pulmonale (principal); J96.11 Chronic respiratory failure with hypoxia; E11.69 Type 2 diabetes mellitus with other specified complication; Z68.39 Body mass index [BMI] 39.0-39.9, adult; E66.9 Obesity, unspecified; G47.33 Obstructive sleep apnea (adult) (pediatric)

== ENCOUNTER → 2025-06-23 10:36 | Outpatient (BNVA) | payer OTHER, SELFPAY | PROVIDERS: PCP Internal Medicine; Visit Provider Internal Medicine | DX: G47.33 Obstructive sleep apnea (adult) (pediatric) (principal); I26.99 Other pulmonary embolism without acute cor pulmonale; J96.11 Chronic respiratory failure with hypoxia; E11.69 Type 2 diabetes mellitus with other specified complication; E66.9 Obesity, unspecified; Z68.39 Body mass index [BMI] 39.0-39.9, adult; Z71.3 Dietary counseling and surveillance | CPT/HCPCS: 99212 ==

== ENCOUNTER 2025-06-25 08:45 | Outpatient (REF) | payer OTHER, SELFPAY ==
--- OUTSIDE RECORDS SUMMARY | 2025-06-25 09:00 | XMS_ITS | Clinical Summary ---
Author Organization [facility] Address [address] [address] Phone Care Team Providers Care Plate Grainer Name Role Phone Nita Carr MD Primary Care Provider [phone]- [phone] Allergies Active Allergy Reactions Criticality Noted Date [...] 1 (one) time each day Active Umeclidinium [place] 62.5 MCG/ACT aerosol powder Inhale Active Albuterol [...] Office Visit [facility] [address] [address] Yomaira Sevilla ARNP [address] [address] Health Maintenance Due Date Last [...] 1, 06/13/2020, 05/08/2019, Additional history exists Insurance [facility] ([id number]) [facility] ([id number]) Care Teams Plate Grainer Relationship Specialty Start Date End Date Nita Carr MD [address] [place], [place] PCP - General Internal Medicine 12/26/23
--- OUTSIDE RECORDS SUMMARY | 2025-06-25 09:00 | XMS_ITS | Encounter Summary ---
Author Organization [facility] Address [address] [place] [address] Phone Care Team Providers Care Financial Operations Clerk Name Role Phone Nita Carr MD Primary Care Provider + Reason for Referral * Consultation (Within 1 month) - New Request Specialty Diagnoses / Procedures Referred By Bolivar murdock Referred To Contact Allergy and Immunology Olivia Meier MD [address] [place] [address] Phone: tel: fax: [address] [address] Phone: tel: Referral ID Status Reason Start Date Expiration Date V isits Requested Visits Authorized [id number] New Request 01/05/2025 01/05/2026 1 1 Encounter Details Date Type Department Care Team (Late st Contact Info) Description 01/05/2025 Transcribe Orders [facility] Referral Management [address] [place] [address] Olivia Meier MD [address] [place] [address] Social History Tobacco Use Types Packs/Day Years [...] Associated Diagnoses Order Schedule Ambulatory referral to [facility] Allergy Outpatient Referral Routine Ordered: 01/05/2025 documented as of this encounter Visit Diagnoses Not on filedocumented in this encounter Care Teams Financial Operations Clerk Relationship Specialty Start Date End Date Nita Carr MD PCP - General Internal Medicine 04/01/23 documented as of this encounter Additional Source Comments The information contained in this document represents components of the legal health record. It is not the complete legal health record.[facility]
--- OUTSIDE RECORDS SUMMARY | 2025-06-25 09:00 | XMS_ITS | Clinical Summary ---
Author Organization [facility] Address [address] [place] [phone] Phone Care Team Providers Care Channel Manager Name Role Phone Nita Carr MD [...] file Insurance MEDICARE PART A & [place] [address] [address] MEDICARE REPLACEMENT MEDICARE PART A & B CARE MEDICARE REPLACEMENT MEDICARE PART A & B [facility] ONE CARE MEDICARE REPLACEMENT MEDICARE PART A & B [facility] ONE CARE MEDICARE REPLACEMENT MEDICARE PART A & B [facility] ONE CARE MEDICARE REPLACEMENT MEDICARE PART A & B Care Teams Channel Manager Relationship Specialty Start Date End Date Nita Carr MD PCP - General Internal Medicine 04/01/23 Additional Source Comments The information contained in this document represents components of the legal health record. It is not the complete legal health record.[facility]
--- OUTSIDE RECORDS SUMMARY | 2025-06-25 09:00 | XMS_ITS | Data Portability ---
Author Organization [facility] Parag Reza AONE Jackson Address [address] [place] [address] Care Team Providers Care Labor Relations Supervisor Name Role Phone STASTITI CHILDS Primary Care Provider [phone] Assessment Encounter Date Assessment Date Assessment LastModified by Organization Details LastModified Time 11/02/2022 11/02/2022 Is a 42-year-old female who comes in initially seen by Dr. Clemente for which he ordered an MRI of her left knee joint concern for meniscus tearing. However the patient states she has had [address] Cody Feng at [facility]. Her main complaint is that [...] Patient was seen and evaluated by Armond oYu PA-C in indirect conjuction with Documenting Provider: [...] [facility], [address], [place], [address], 10:40:58 Kenalog 40 mg/mL suspension for injection 2022 023 [email or web address] [facility], [address], [place], [address], 10:40:58 Euflexxa 10 mg/mL (mw 2.4-3.6 million) intra-artic ular syringe 2022 023 [email or web address] [facility], [address], [place], [address], 10:34:38 Euflexxa 10 mg/mL (mw 2.4-3.6 million) intra-artic ular syringe 2022 023 [email or web address] [facility], [address], [place], [address], 10:34:38 Euflexxa 10 mg/mL (mw 2.4-3.6 million) intra-artic ular syringe 2022 023 [email or web address] [facility], [address], [place], [address], 10:34:38 Patient TargetsNo targets recorded. Patient Instructions Encounter Date Encounter Id Patient Instructions Last Modified By Organization Details Last Modified Time 12/10/2022 [id number] You have been pr ovided with a [...] or contact us through the portal RHINA. [email or web address] Not available 12/10/2022 13:29:02 12/17/2022 [id number] You have been pr ovided with a [...] portal RHINA. Not available 12/17/2022 11:08:55 12/26/2022 [id number] You have been pr ovided with a [...] RHINA. 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 Procedures Surgical History Date Name Laterality Status Provider Name and Address Organization Details Recorded Time 3 Knee Joint/Bursa Asp & Inj completed ARMOND YOU PA-C [address], [place], [address], [place] [facility] [place] 05/01/2023 10:27:37 3 Euflexxa Knee Inj completed ARMOND YOU PA-C [address], [place], [address], [facility] 12/26/2022 14:57:23 3 Euflexxa Knee Inj completed ARMOND YOU PA-C [address] [facility], [place], [address], [facility] 12/17/2022 11:09:08 3 Euflexxa Knee Inj completed ARMOND YOU PA-C [address], [place], [address], [place] [facility] 12/10/2022 13:59:24 Knee arthroscopy/s urgery completed Mony Luna [facility] [place] 09/28/2022 10:14:17 Imaging Results None recorded. Procedure Notes None recorded. Medical Equipment None Reported. Allergies Allergen ID Allergen Name Allergen Category Reaction Reaction Severity Criticality Documentation Date Start Date Code Code System Note Provider Name and Address Organization Details Recorded Time 3229 lidocaine medicatio n hives severe high 11/04/2022 6387 RxNorm ARMOND YOU PA-C [address], [place], [address], [facility] 17:35:35 Medications Name Sig Start Date [...] Updated DateTime 11/02/2022 149.86 cm 32.3 kg/m2 [address]376[address] [facility] 11/02/2022 14:30:09 Date Recorded Body height Provider Name an d Address Organization Details Last Updated DateTime 12/10/2022 149.86 [address] De Leon [facility] 12/10/2022 13:32:53 Date Recorded Body height Provider Name an d Address Organization Details Last Updated DateTime 12/17/2022 149.86 [address] De Leon [facility] 12/17/2022 13:14:53 Social History None recorded. 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 7268549504 202741 M79.4 Osteoarthr itis of left knee joint 7096640793 80642 M17.12 15427 ARTURO ESCUDERO [address] [place] [address] 12/10/2022 13:20:48 12/10/2022 16:09:29 Osteoarthritis of left knee joint 7048331230 16423 M17.12 [id number] ARTURO ESCUDERO [address] [place] [address] 12/17/2022 12:36:26 12/17/2022 13:53:15 Osteoarthritis of left knee joint 6873834970 77666 M17.12 [id number] ARTURO ESCUDERO [facility] [address] [facility] [address] [facility], [place] [address] 12/26/2022 14:15:24 12/26/2022 15:28:05 Osteoarthritis of left knee joint 1947646712 72510 M17.12 [id number] ARTURO ESCUDERO [facility] [address] [facility] [address] [facility] [place] [address] 05/01/2023 09:58:49 05/01/2023 10:39:17 Osteoarthritis of left knee joint 1842685670 25691 M17.12 Osteoarthr itis of right knee joint 9305716286 62679 M17.11 Health Concerns Section Related Observation LastModified by Organization Detai ls LastModified Time None Recorded Concern Status LastModified by Organization Details LastModified Time None Recorded Advance Directives Directive None Recorded Payers Insurance Date Sequence Insurance Name Policy Number Policy Soler Covered Member ID Soler Member ID Guarantor Name 12/05/2022 1 [facility] - DOS PRIOR TO 2022 (MEDICARE REPLACEMENT/AD VANTAGE - PPO) Amy Cruz [id number] Amy Cruz 07/29/2023 1 [facility] - DOS ON OR AFTER 2022 - MEDICARE ADVANTAGE [place] (MEDICARE REPLACEMENT/AD VANTAGE - PPO) Amy Cruz [id number] Amy Cruz Notes Date Note Type Note [...] [address] Cody Feng at [facility] including lateral release and meniscus [...] X-rays both knees reveal minimal degenerative change. [facility] [address] [place] [address] ___Patient: AMY CRUZ Deanna /Age/Sex: 1980 - 42 - FUnit#: [id number] [facility]/REG CLIAccount#: [id number] Mnemonic/Ordering Site: [email or web address] Physician: NIMA CLEMENTE MD [...] MONALISA FLORES MDElectronically Signed by: MONALISA FLORES [facility]ITALmel[facility] Date/Time: 10/21/22 1444Sign date/Time: 10/21/22 144 ARMOND YOU PA-C [address], [place], [address], [facility] 11/04/2022 17:41:28 3 text/html Assessment & Plan: Date of visit 11/02/2022 Is a 42-year-old female who comes in initially seen by Dr. Clemente for which he ordered an MRI of her left knee joint concern for meniscus tearing. However the patient states she has had [address] Cody Feng at [facility]. Her main complaint is that [...] up by neurology. ARMOND YOU PA-C [address] [facility] [address], [place], [address], [facility] 12/10/2022 14:01:46 3 text/html HPI:Ongoing left [...] ARMOND YOU PA-C [address], [place], [address], [facility] 12/17/2022 13:53:33 3 text/html HPI:Ongoing left [...] 2nd shot . ARMOND YOU PA-C [address], [place], [address], [facility] 12/26/2022 15:19:41 3 text/html 41-year-old female [...] ARMOND YOU PA-C [address], [place], [address], [facility] 05/01/2023 10:40:11 OBGyn Episode No OBEpisode recorded.
--- OUTSIDE RECORDS SUMMARY | 2025-06-25 09:00 | XMS_ITS | Clinical Summary ---
Author Organization [facility] [facility] [place] [address] Care Team Providers Care Water Ski Assembler Name Role Phone Nita Carr MD Primary Care Provider [phone] Social History Tobacco Use Types Packs/Day Years [...] Documents on File Type Date Recorded Patient Ic Design Manager Expl anation Health Care Decision (hx) 08/02/2023 AD DAMON DIRECTIVE Health Care Decision (hx) 07/10/2023 HE ALTH CARE PROXY Care Teams Water Ski Assembler Relationship Specialty Start Date End Date Nita Carr MD [address] [place] [id number] PCP - General 10/31/17
[2025-06-25 16:11] LABS: Magnesium 2.1 mg/dL (1.6-2.6)
== END 2025-06-25 08:46 | disposition home or self-care (01) ==
LOC: HO.HKASLDS 08:45
PROVIDERS: PCP Internal Medicine; Visit Provider Internal Medicine
DX: D72.12 Drug rash with eosinophilia and systemic symptoms syndrome (principal); E66.9 Obesity, unspecified; T50.905A Adverse effect of unspecified drugs, medicaments and biological substances, initial encounter; R56.9 Unspecified convulsions; E11.8 Type 2 diabetes mellitus with unspecified complications
CPT/HCPCS: 36415; 83036; 83735; 84443